=== PATIENT | female | born 1955 | race Caucasian/White ===

== ENCOUNTER 2020-09-20 12:38 | Emergency (ER) | payer OTHER, SELFPAY ==
--- NOTE | ~2020-09-20 | CT_ITS ---
EXAMINATION: CT ABDOMEN AND PELVIS WITH CONTRAST CLINICAL INFORMATION: History of ulcerative colitis post colectomy. Diarrhea and vomiting. Evaluate for bowel obstruction or pouchitis. COMPARISON: None TECHNIQUE: Multidetector volumetric images were obtained from the superior aspect of the liver through the pubic symphysis following administration 85 mL of Omnipaque 350 intravenous contrast. Sagittal and coronal reformatted images were obtained on the technologist's workstation. Oral contrast: Yes This CT examination was performed using dose optimization techniques as appropriate, variously including the following: *Automated exposure control *Adjustment of mA and/or kV according to patient size (this includes techniques or standardized protocols for targeted exams where dose is matched to indication/reason for exam; i.e. extremities or head) *Use of iterative reconstruction technique DLP: 380 mGy-cm FINDINGS: LUNG BASES: The visualized lung bases are unremarkable. LIVER, GALLBLADDER, AND BILIARY TREE: There are multiple low-attenuation liver lesions compatible with cysts. The largest measures 2 cm in the central right lobe the liver near the venous confluence. The gallbladder is unremarkable. There is no biliary duct dilatation. PANCREAS: Unremarkable. SPLEEN: Unremarkable. ADRENAL GLANDS: Unremarkable. KIDNEYS AND URETERS: The kidneys are normal in size, shape, and attenuation. No hydronephrosis, hydroureter, or calculi seen. No perinephric stranding. BLADDER: Unremarkable. GASTROINTESTINAL TRACT: The patient is post total colectomy. There are slightly dilated fluid-filled loops of distal small bowel in the right lower quadrant and pelvis. The pouch is slightly distended and fluid-filled. No wall thickening to suggest pouchitis. No caliber change to suggest mechanical obstruction. There is a small amount of ascites in the pelvis. No abscess or free air is seen. ABDOMINAL WALL: There is a small ventral or supraumbilical and umbilical hernias containing fat. LYMPH NODES: Normal. VASCULAR: Unremarkable. PELVIC VISCERA: The uterus appears to have been removed. No pelvic mass is seen. OSSEOUS STRUCTURES: There is degenerative disc disease at L5-S1. There is a 9 mm anterior subluxation of L5 with respect to S1. CT/CT abdomen pelvis w con IMPRESSION: Postsurgical change following total colectomy. Slightly dilated fluid-filled loops of distal small bowel in the right lower quadrant and pelvis and dilated fluid-filled pouch. No wall thickening to suggest pouchitis. No caliber change to suggest mechanical obstruction. Small amount of fluid in the pelvis. Multiple liver cysts.
[2020-09-20 12:47] VITALS: BP 117/74; PULSE 85; RESP 15; TEMP 36.7; O2SAT 98; BMI 19.8
[2020-09-20] MEDS: ondansetron HCL 4 MG/2 ML VIAL IVPUSH (13:22)
[2020-09-20] MEDS: 0.9 % Sodium Chloride 1,000 ML 999 ML IV ×2 (13:22)
[2020-09-20 13:25] LABS: MANUAL DIFF FLAG NO
[2020-09-20 13:28] LABS: Basophils Percent Auto 0.6 % (0-2); Eosinophils Absolute Auto 0.5 X10*3/uL (0.0-0.4); Eosinophils Percent Auto 7.7 % (0-4); Hematocrit 48.1 % (37-47); Hemoglobin 15.6 g/dl (12.0-16.0); Imm Gran Abs Auto 0.01 X10*3/uL (0.00-0.03); Imm Gran Pct Auto 0.2 % (0.0-0.4); Lymphocytes Absolute Auto 1.3 X10*3/uL (1.2-4.9); Lymphocytes Percent Auto 21.1 % (20-40); Mean Corpuscular HGB Conc 32.4 g/dl (31.0-35.0); Mean Corpuscular Hemoglobin 28.7 pg (27.0-33.0); Mean Corpuscular Volume 88.4 fL (80-98); Mean Platelet Volume 10.3 fL (9.4-12.3); Monocytes Absolute Auto 0.7 X10*3/uL (0.1-1.2); Monocytes Percent Auto 10.8 % (2-11); Neutrophils Absolute Auto 3.7 X10*3/uL (2.0-8.3); Neutrophils Percent Auto 59.6 % (45-73); Platelet Count 332 X10*3/uL (160-400); Red Blood Count 5.44 X10*6/uL (4.20-5.50); Red Cell Distribution Width 13.4 % (11.0-16.0); White Blood Count 6.3 X10*3/uL (4.8-10.8)
[2020-09-20 13:58] LABS: Alanine Aminotransferase 22 U/L (0-31); Albumin Level 4.5 g/dL (3.5-5.0); Alkaline Phosphatase 78 U/L (39-117); Anion Gap 14 (12-20); Aspartate Amino Transferase 22 U/L (5-31); Bilirubin Total 0.6 mg/dL (0.0-1.0); Blood Urea Nitrogen 26 mg/dL (9-16); Calcium 10.4 mg/dL (8.4-10.2); Carbon Dioxide 22 mmol/L (22-29); Chloride 102 mmol/L (96-108); Creatinine Clr Calc Pharmacy 47.9; Estimated Glomerular Filt Rate 55; Glucose Random 124 mg/dL (60-115); Lipase 44 U/L (8-78); Potassium 4.2 mmol/L (3.3-5.1); Sodium 134 mmol/L (135-145); Total Protein 8.1 g/dL (6.5-8.0)
[2020-09-20] MEDS: iohexoL 350 MG/ML 100 ML INFUS..BTL 85 ML IV (14:19)
[2020-09-20 14:53] LABS: Lactic Acid 0.7 mmol/L (0.5-2.0)
[2020-09-20 15:16] VITALS: BP 115/71; PULSE 69
[2020-09-20 15:17] VITALS: BP 119/80; PULSE 80
[2020-09-20 15:19] VITALS: BP 114/81; PULSE 75
[2020-09-20 15:22] VITALS: BP 114/81; PULSE 71; RESP 16; TEMP 36.6; O2SAT 100
--- NOTE | 2020-09-20 15:49 | ED_ITS ---
HPI - General Adult General Chief complaint: Nausea/Vomiting/Diarrhea Stated complaint: VOMITING DIARRHEA Time Seen by Provider: 09/20/20 12:52 Source: patient and family (Patient's daughter ) Mode of arrival: ambulatory Limitations: no limitations History of Present Illness HPI narrative: 64-year-old female who presents the emergency department for evaluation of nausea, vomiting, diarrhea, dizziness and weakness times 2-3 days. The patient has a history of ulcerative colitis and had a cancerous polyp which required colectomy with creation of a J-pouch approximately 1 and half years prior to evaluation. The patient states that she gets episodes of diarrhea and nausea but seldom gets episodes with vomiting. She states that over the past 2- 3 days she has had intermittent nausea. She has vomited anywhere from 1-4 times per day. She states that she has had diarrhea, too numerous episodes to count. She describes diarrhea as a large volume of watery diarrhea with occasional blood in the diarrhea. She states that she has been able to eat small amounts of food but she has been able to drink large amounts of fluid. She denies feeling bloated or distended. She denied abdominal pain. She denied fever, chills, chest pain or shortness of breath. She has not had any recent travel. She has not been treated with antibiotics recently. She states that she gets episodes of diarrhea every 2-3 months which her doctor is attributed to possible proctitis. She was on Remeron to see if this improved the symptoms but this was discontinued in June of 2020. The patient's provider did start her on nortriptyline for 6 weeks to see if this improved her symptoms diarrhea. 1625: The patient C difficile toxin a and B and antigen tests were negative. I did leave a message on the patient's voicemail with this information. Please note the patient does identify yourself on the voicemail. Related Data Allergies Allergy/AdvReac Type Severity Reaction Status Date / Time No Known Allergies Allergy Verified 09/20/20 13:08 Review of Systems Review of Systems: Yes all other systems are reviewed and are negative Neurologic: Reports Abnormal speech present [facility] Past Medical History [facility] Narrative: Past medical history: Ulcerative colitis, colectomy secondary to cancerous polyps 2 years prior, J pouch created 1/2 years prior, cervical cancer, EHSAN/BSO, partial nephrectomy secondary to benign tumor 7 years prior. The patient denies tobacco, alcohol and drug use. Social History Social History Advance Directives: Yes Advance Directives Information Provided: No Advance Directives on File: No Physical Exam Vital Signs: Vital Signs: Last Vital Signs Temp 97.8 F 09/20/20 15:22 Pulse 71 09/20/20 15:22 Resp 16 09/20/20 15:22 BP 114/81 09/20/20 15:22 Pulse Ox 100 09/20/20 15:22 Body Mass Index 19.8 Const: General: healthy appearing and other (Very pleasant and cooperative, does not appear to be in distress) Orientation/consciousness: oriented to person and oriented to place Limitations: no limitations HENMT: Head: Yes normal to inspection, Yes normocephalic and Yes atraumatic Ears: external ears normal General nose exam: Normal external nose present Face and sinus: Yes normal facial exam Mouth: Normal oral and palatal mucosa present Throat: Yes posterior oropharynx normal Eyes: Periorbital: periorbital findings normal Eyelids: Yes eyelids normal Conjunctivae: conjunctivae normal Sclerae: sclerae normal Corneas: corneas normal Pupils: Equal, round and reactive pupils present Direct Ophthalmoscopy: normal light reflex Neck: Neck: Yes full ROM, Yes no lymphadenopathy, Yes no meningeal signs, Yes trachea midline and Yes supple Chest: Chest palpation & inspection: normal inspection of the chest and normal palpation of entire chest wall Resp: Effort & Inspection: normal respiratory effort and able to speak in c omplete sentences Auscultation: clear to auscultation bilaterally Cardio: Rate: regular rate Rhythm: regular rhythm Heart sounds: S1 normal heart sound present, S2 normal heart sound present and no murmurs GI: Inspection: Yes normal to inspection Palpation (GI): Soft to palpation, nontender, no guarding, not rigid and No hepatosplenomegaly present : General: Yes no CVA tenderness Back/Spine/Pelvis: Back: no CVA tenderness Cervical Spine: normal cervical lordosis Thoracic/Lumbar Spine: thoracic and lumbar spine normal to inspection Skin: Lesions: no lesions Rashes: no rashes Wounds: no wounds Neuro: General: oriented to person, oriented to place and no meningeal signs Cranial nerves: Yes Equal, round and reactive pupils present Cognition (Neuro): normal cognition Speech: Abnormal speech present Motor exam (neuro): 5/5 motor strength present throughout Extrem: General: Yes normal to inspection and Yes full ROM Psych: Appearance: well kempt Mental Status: mental status grossly normal Speech and movement: Normal speech and movement present Affect: normal affect Attitude: cooperative Thought process: Normal thought process present Thought content: Normal thought content present Course Course Course Narrative: 64-year-old female with history of ulcerative colitis status post colectomy and creation of J-pouch who presents emergency department for evaluation of nausea, vomiting, diarrhea and weakness times 2-3 days. Patient's physical examination revealed normal vital signs. The patient's abdomen did not appear to be distended and she had no significant abdominal tenderness. The differential includes but not limited to infectious diarrhea (C diff), viral syndrome, bowel obstruction, pouchitis. I did order laboratory evaluation and CT scan of the abdomen pelvis with IV contrast. Patient was ordered to get Zofran 4 mg IV for her nausea and vomiting and normal saline IV x2 L for her dehydration. 15 30: The patient's laboratory evaluation revealed a slight elevation of BUN of 26 otherwise was unremarkable, showed normal LFTs and a non elevated lipase. CT scan of the abdomen and pelvis with IV contrast revealed no bowel obstruction, no wall thickening, the patient does have some slightly dilated loops of small bowel and slightly dilated pouch with fluid in the patch noted with no wall thickening and no inflammatory changes. Given this finding, I suspect that the patient has a viral gastritis verses bacterial diarrheal illness. C diff and stool cultures are pending. The patient did receive 2 L of normal saline IV and she was not orthostatic after this infusion. She is feeling significantly better and was discharged home with verbal and printed instructions. Medical Decision Making Lab Data Result diagrams: 09/20/20 13:14 09/20/20 13:14 Labs: Lab Results 09/20/20 09/20/20 09/20/20 Range/Units 13:14 13:14 14:26 WBC 6.3 (4.8-10.8) X10*3/uL RBC 5.44 (4.20-5.50) X10*6/uL Hgb 15.6 (12.0-16.0) g/dl Hct 48.1 H (37-47) % MCV 88.4 (80-98) fL MCH 28.7 (27.0-33.0) pg MCHC 32.4 (31.0-35.0) g/dl RDW 13.4 (11.0-16.0) % Plt Count 332 (160-400) X10*3/uL MPV 10.3 (9.4-12.3) fL Immature Gran % (Auto) 0.2 (0.0-0.4) % Neut % (Auto) 59.6 (45-73) % Lymph % (Auto) 21.1 (20-40) % [place] % (Auto) 10.8 (2-11) % Eos % (Auto) 7.7 H (0-4) % Baso % (Auto) 0.6 (0-2) % Lymph # (Auto) 1.3 (1.2-4.9) X10*3/uL [place] # (Auto) 0.7 (0.1-1.2) X10*3/uL Eos # (Auto) 0.5 H (0.0-0.4) X10*3/uL Baso # (Auto) 0.0 (0.0-0.2) X10*3/uL Abs Immat Gran (auto) 0.01 (0.00-0.03) X10*3/uL Absolute Neuts (auto) 3.7 (2.0-8.3) X10*3/uL Absolute Nucleated RBC 0.000 (0.0-0.012) X10*3/uL Nucleated RBC % (auto) 0.0 (0.0-0.2) /100WBC Sodium 134 L (135-145) mmol/L Potassium 4.2 (3.3-5.1) mmol/L Chloride 102 (96-108) mmol/L Carbon Dioxide 22 (22-29) mmol/L Anion Gap 14 (12-20) BUN 26 H (9-16) mg/dL Creatinine 1.01 (0.5-1.4) mg/dL Estim Creat Clear Calc 47.9 Estimated GFR 55 Random Glucose 124 H (60-115) mg/dL Lactic Acid 0.7 (0.5-2.0) mmol/L Calcium 10.4 H (8.4-10.2) mg/dL Total Bilirubin 0.6 (0.0-1.0) mg/dL AST 22 (5-31) U/L ALT 22 (0-31) U/L Alkaline Phosphatase 78 (39-117) U/L Total Protein 8.1 H (6.5-8.0) g/dL Albumin 4.5 (3.5-5.0) g/dL Lipase 44 (8-78) U/L C. difficile Toxin A&B (Negative) C. difficile Antigen (Negative) C. difficile Interpret 09/20/20 Range/Units 15:12 WBC (4.8-10.8) X10*3/uL RBC (4.20-5.50) X10*6/uL Hgb (12.0-16.0) g/dl Hct (37-47) % MCV (80-98) fL MCH (27.0-33.0) pg MCHC (31.0-35.0) g/dl RDW (11.0-16.0) % Plt Count (160-400) X10*3/uL MPV (9.4-12.3) fL Immature Gran % (Auto) (0.0-0.4) % Neut % (Auto) (45-73) % Lymph % (Auto) (20-40) % [place] % (Auto) (2-11) % Eos % (Auto) (0-4) % Baso % (Auto) (0-2) % Lymph # (Auto) (1.2-4.9) X10*3/uL [place] # (Auto) (0.1-1.2) X10*3/uL Eos # (Auto) (0.0-0.4) X10*3/uL Baso # (Auto) (0.0-0.2) X10*3/uL Abs Immat Gran (auto) (0.00-0.03) X10*3/uL Absolute Neuts (auto) (2.0-8.3) X10*3/uL Absolute Nucleated RBC (0.0-0.012) X10*3/uL Nucleated RBC % (auto) (0.0-0.2) /100WBC Sodium (135-145) mmol/L Potassium (3.3-5.1) mmol/L Chloride (96-108) mmol/L Carbon Dioxide (22-29) mmol/L Anion Gap (12-20) BUN (9-16) mg/dL Creatinine (0.5-1.4) mg/dL Estim Creat Clear Calc Estimated GFR Random Glucose (60-115) mg/dL Lactic Acid (0.5-2.0) mmol/L Calcium (8.4-10.2) mg/dL Total Bilirubin (0.0-1.0) mg/dL AST (5-31) U/L ALT (0-31) U/L Alkaline Phosphatase (39-117) U/L Total Protein (6.5-8.0) g/dL Albumin (3.5-5.0) g/dL Lipase (8-78) U/L C. difficile Toxin A&B Negative (Negative) C. difficile Antigen Negative (Negative) C. difficile Interpret SEE NOTE Discharge Plan Discharge Clinical Impression: Acute dehydration Diarrhea Qualifiers: Diarrhea type: unspecified type Qualified Code(s): R19.7 - Diarrhea, unspecified Vomiting Qualifiers: Vomiting type: unspecified Vomiting Intractability: non-intractable Nausea presence: with nausea Qualified Code(s): R11.2 - Nausea with vomiting, unspecified Patient Disposition: Home, Self-Care Instructions: Acute Nausea and Vomiting (ED), Acute Diarrhea (ED) Additional Instructions: Your blood work was normal. The CT scan of your abdomen pelvis with IV contrast reveals some slight dilation of loops of small bowel and some fluid the J pouch but no evidence inflammation or wall thickening which is reassuring. The cause of your symptoms is unclear, you may have a viral infection. Your stool was sent for C difficile testing and for a stool culture. The C difficile test should come back today but the stool culture may come back in 2-3 days. Rest Increase your fluid and food intake. Take the Zofran as needed for nausea and vomiting. Take Tylenol (acetaminophen) 500 mg pills, 2 pills every 4 to 6 hours as needed for pain. Follow-up with your doctor in 2 days. Please return to the emergency department if your symptoms get worse or if you develop any symptoms that are concerning to you. Interventions: ED Discharge Assessment Last Done: 09/20/20 15:56 Discharge Date/Time: 09/20/20 15:56
[2020-09-20 16:08] LABS: CDIFF Ag Negative (Negative); CDIFF Internal ctrl Dots and bkg OK (V); CDiff Toxin Negative (Negative)
== END 2020-09-20 15:56 | disposition home or self-care (01) ==
PROVIDERS: Emergency Provider Emergency Medicine Emergency Medical Services
DX: E86.0 Dehydration (principal); R19.7 Diarrhea, unspecified; R11.2 Nausea with vomiting, unspecified
CPT/HCPCS: 36415; 74177; 80053; 83605; 83690; 85025; 87045; 87046; 87324; 87449; 96361; 96374; 99284; J2405; Q9967

== ENCOUNTER 2020-11-03 12:31 | Outpatient (REF) | payer OTHER, SELFPAY ==
[2020-11-03 13:34] LABS: Influenza A PCR NEGATIVE (Negative); Influenza B PCR NEGATIVE (Negative); Resp Syncy Virus RNA Qual PCR NEGATIVE (Negative); SARS COV2 PCR INHOUSE NEGATIVE (Negative)
== END 2020-11-03 12:32 | disposition home or self-care (01) ==
LOC: HO.LAB 12:31
PROVIDERS: PCP Internal Medicine; Visit Provider Nurse Practitioner Family
DX: Z20.822 Contact with and (suspected) exposure to COVID-19 (principal)
CPT/HCPCS: 0241U; 36415

== ENCOUNTER 2020-12-16 12:25 | Outpatient (REF) | payer OTHER, SELFPAY ==
[2020-12-16 13:49] LABS: Influenza A PCR NEGATIVE (Negative); Influenza B PCR NEGATIVE (Negative); Resp Syncy Virus RNA Qual PCR NEGATIVE (Negative); SARS COV2 PCR INHOUSE NEGATIVE (Negative)
== END 2020-12-16 12:26 | disposition home or self-care (01) ==
LOC: HO.LAB 12:25
PROVIDERS: Visit Provider Physician Assistant Medical
DX: Z20.822 Contact with and (suspected) exposure to COVID-19 (principal)
CPT/HCPCS: 0241U; 36415

== ENCOUNTER 2021-02-01 12:11 | Outpatient (REF) | payer OTHER, SELFPAY ==
[2021-02-01 13:22] LABS: Influenza A PCR NEGATIVE (Negative); Influenza B PCR NEGATIVE (Negative); Resp Syncy Virus RNA Qual PCR NEGATIVE (Negative); SARS COV2 PCR INHOUSE NEGATIVE (Negative)
== END 2021-02-01 12:12 | disposition home or self-care (01) ==
LOC: HO.LDS 12:11
PROVIDERS: Visit Provider Physician Assistant Medical
DX: Z01.818 Encounter for other preprocedural examination (principal)
CPT/HCPCS: 0241U; 36415

== ENCOUNTER 2021-08-06 12:50 | Outpatient (REF) | payer OTHER, SELFPAY ==
[2021-08-06 16:38] LABS: COVID-19 Test Negative (Negative)
== END 2021-08-06 12:51 | disposition home or self-care (01) ==
LOC: HO.LAB 12:50
PROVIDERS: Emergency Medicine; Visit Provider Internal Medicine
DX: Z20.822 Contact with and (suspected) exposure to COVID-19 (principal)
CPT/HCPCS: 36415; 87635

== ENCOUNTER 2021-10-14 16:34 | Outpatient (REF) | payer OTHER, SELFPAY ==
[2021-10-14 18:15] LABS: Influenza A PCR NEGATIVE (Negative); Influenza B PCR NEGATIVE (Negative); Resp Syncy Virus RNA Qual PCR NEGATIVE (Negative); SARS COV2 PCR INHOUSE POSITIVE (Negative)
== END 2021-10-14 16:35 | disposition home or self-care (01) ==
LOC: HO.10HDL 16:34
PROVIDERS: Visit Provider Physician Assistant
DX: Z20.822 Contact with and (suspected) exposure to COVID-19 (principal)
CPT/HCPCS: 0241U

== ENCOUNTER 2024-05-21 12:11 | Inpatient (IN) | payer MEDICARE, SELFPAY ==
--- NOTE | ~2024-05-21 | CT_ITS ---
EXAMINATION: CT ABDOMEN AND PELVIS WITH CONTRAST CLINICAL INFORMATION: Small bowel obstruction, continued abdominal pain COMPARISON: May 21, 2024 TECHNIQUE: Multidetector volumetric images were obtained from the superior aspect of the liver through the pubic symphysis following administration 85 mL of Omnipaque 350 intravenous contrast. Sagittal and coronal reformatted images were obtained on the technologist's workstation. Oral contrast: No This CT examination was performed using dose optimization techniques as appropriate, variously including the following: *Automated exposure control *Adjustment of mA and/or kV according to patient size (this includes techniques or standardized protocols for targeted exams where dose is matched to indication/reason for exam; i.e. extremities or head) *Use of iterative reconstruction technique DLP: 301 mGy-cm FINDINGS: LUNG BASES: The visualized lung bases are unremarkable. LIVER, GALLBLADDER, AND BILIARY TREE: There are stable multiple low-attenuation lesions in the liver consistent with multiple hepatic cysts. Patient is status post cholecystectomy PANCREAS: Unremarkable. SPLEEN: Unremarkable. ADRENAL GLANDS: Unremarkable. KIDNEYS AND URETERS: The kidneys are normal in size, shape, and attenuation. No hydronephrosis, hydroureter, or calculi seen. No perinephric stranding. BLADDER: Unremarkable. GASTROINTESTINAL TRACT: Patient is status post total colectomy loops of small bowel are significantly distended due to small bowel obstruction, there is mild abdominal and pelvic ascites. Zone of transition is not clear. Postsurgical changes seen in the lower abdomen. ABDOMINAL WALL: No significant hernia is appreciated. LYMPH NODES: Normal. VASCULAR: Unremarkable. PELVIC VISCERA: Patient is status post hysterectomy OSSEOUS STRUCTURES: There are degenerative changes at L5-S1 with grade [address] defect[address]/CT abdomen pelvis w IV con IMPRESSION: 1. High-grade small bowel obstruction. 2. Mild ascites. 3. Status post cholecystectomy and hysterectomy and colectomy. 4. Multiple hepatic cysts. 5. Degenerative changes at L5-S1. Fleischner guidelines were followed. Electronically signed by: Evaristo Lujan MD 05/25/2024 05:42 PM EDT
--- NOTE | ~2024-05-21 | CT_ITS ---
EXAMINATION: CT ABDOMEN AND PELVIS WITH CONTRAST CLINICAL INFORMATION: Ulcerative colitis, abdominal pain COMPARISON: September 20, 2020 TECHNIQUE: Multidetector volumetric images were obtained from the superior aspect of the liver through the pubic symphysis following administration of 76 mL of Omnipaque 350 intravenous contrast. Sagittal and coronal reformatted images were obtained on the technologist's workstation. Oral contrast: Redicat This CT examination was performed using dose optimization techniques as appropriate, variously including the following: *Automated exposure control *Adjustment of mA and/or kV according to patient size (this includes techniques or standardized protocols for targeted exams where dose is matched to indication/reason for exam; i.e. extremities or head) *Use of iterative reconstruction technique DLP: 364 mGy-cm FINDINGS: LUNG BASES: Bibasilar atelectasis. LIVER, GALLBLADDER, AND BILIARY TREE: There are multiple low-attenuation lesions in the liver unchanged since previous study due to multiple cysts. Blood is surgically absent. CBD is mildly dilated. There is no evidence of choledocholithiasis. PANCREAS: Unremarkable. SPLEEN: Unremarkable. ADRENAL GLANDS: Unremarkable. KIDNEYS AND URETERS: The kidneys are normal in size, shape, and attenuation. No hydronephrosis, hydroureter, or calculi seen. No perinephric stranding. BLADDER: Unremarkable. . There is no free air or ascites. GASTROINTESTINAL TRACT: Loops of small bowel are distended by fluid and revealed no evidence of wall thickening or ulcerations. Patient is status post total colectomy. Rectosigmoid ductal lesion reveals small amount of stool in the surgical lucas present. There is trace of ascites. ABDOMINAL WALL: No significant hernia is appreciated. LYMPH NODES: Normal. VASCULAR: Unremarkable. PELVIC VISCERA: Uterus is surgically absent OSSEOUS STRUCTURES: There are degenerative changes at the level of L5-S1 with grade [address]/CT abdomen pelvis w IV con IMPRESSION: 1. Status post total colectomy with small amount of stool in the rectum. 2. Fluid-filled distended small bowel, correlate clinically. 3. Trace of ascites. 4. Multiple hepatic cysts. 5. Degenerative changes at the level of L5-S1 with grade 1 anterolisthesis. Fleischner guidelines were followed. Electronically signed by: Evaristo Lujan MD 05/21/2024 06:53 PM EDT
--- NOTE | ~2024-05-21 | XR_ITS ---
EXAMINATION: XR CHEST 1 VIEW CLINICAL INFORMATION: check ng tube placement COMPARISON: None TECHNIQUE: Single portable frontal view. Tubes and lines: Gastric tube passing below the diaphragm into the stomach properly positioned. Lungs and pleura: Both lungs are clear. Heart and mediastinum: The mediastinum is within normal limits.. Bones/soft tissue: Skeletal structures included are normal for patient's age. XR/XR chest 1V IMPRESSION: 1. Gastric tube passing below the diaphragm into the stomach properly positioned. 2. No radiographic evidence of acute cardiopulmonary disease. Electronically signed by: Kenny Troy MD 05/22/2024 07:06 AM EDT
--- NOTE | 2024-05-21 12:26 | ED_ITS ---
HPI - Abdominal Pain General Chief Complaint: Abdominal Pain Stated Complaint: Abd pain, vomiting Time Seen by Provider: 05/21/24 13:25 Source: patient and family () Mode of arrival: ambulatory Limitations: no limitations History of Present Illness ED Provider: ELICEO CAMPOS PA-C HPI narrative: 68 year old female with pmhx significant for ulcerative colitis, hx of cancerous polyp s/p colectomy with J-pouch (follows with [facility]) presents to the ED today for evaluation of acute onset abdominal pain and nausea/ vomiting since 0200 this morning. She reports this pain woke her from her sleep. Her pain is localized to her epigastric region. Pain at onset was 7/10, now around 4-5/10 on arrival to ED. Additionally reports nausea and dry heaving with small amounts of biliary emesis. Trialed a dose of zofran [employer] SAWYER in ED without improvement. She states that she has not had a BM since yesterday which is unusual for her as she typical passes multiple BMs throughout the day. Passing gas. She reports history of ?SBO in the past which resolved with bowel rest and is now concerned she may be obstructed again. Denies fever, chills. Related Data Home Medications ?Medication ?Instructions ?Recorded ?Confirmed loperamide 2 mg capsule 2 mg PO QID PRN Loose Stool 05/21/24 05/21/24 Allergies Allergy/AdvReac Type Severity Reaction Status Date / Time No Known Allergies Allergy Verified 05/21/24 12:29 Review of Systems Review of Systems Constitutional: No fever, chills, fatigue, night sweats, weight changes ENT/Mouth: No ear pain, hearing loss, nasal congestion, sinus pain, rhinorrhea, sore throat Eyes: No eye pain, swelling, redness, vision changes, discharge Cardio: No chest pain, palpitations, FERNÁNDEZ, orthopnea, peripheral edema Pulm: No SOB, cough, sputum, wheezing, dyspnea, hemoptysis GI: No hematemesis, diarrhea, constipation, hematochezia, melena, +abd pain, +N/V : No irregular bleeding, dysuria, frequency, urgency, hesitancy, hematuria, flank pain, urinary flow changes, urinary incontinence or retention MSK: No back pain, neck pain, joint pain, myalgias Skin: No lesions, rashes Neuro: No weakness, numbness, paresthesias, LOC, dizziness, headache Psych: No anxiety/panic, depression, SI/HI, AH/VH All other systems reviewed and are negative. [facility]LY [facility], [facility] Past Medical History Attestation statement: The following information was validated with the patient. Source: old records reviewed and nursing notes reviewed Social History Social History Alcohol intake: current Patient Tobacco Use Status: Never used Tobacco Use of substances other than those prescribed or required for medical reasons: No Advance Directives: No Advance Directives Information Provided: No Physical Exam ED Vital Signs: Vital Signs - 24 hr 05/21/24 12:27 05/21/24 16:30 05/21/24 18:00 Temperature 96.8 F 98.2 F 98.8 F Pulse Rate 78 67 71 Respiratory Rate 16 15 13 Blood Pressure 118/77 111/69 125/67 Pulse Oximetry 97 97 98 Oxygen Delivery Method Room Air Room Air Room Air BMI result Body Mass Index 19.8 vital signs stable. afebrile. normotensive. General: Well appearing, in no acute distress. Skin: Warm, dry, intact. No rashes or lesions. Head: Normocephalic, atraumatic. EENT: Hearing is intact b/l. Conjunctiva clear. PERRLA. Moist mucous membranes.? Neck: Supple without LAD Cardiac: Chest wall symmetric. RRR Lungs: Normal respiratory effort without accessory muscle use. CTA bilaterally. Abdomen: soft, mildly distended, ttp of epigastric region without rebound or guarding, active bs x4. no cvat. Back: No midline spinous or paraspinal tenderness. No step off deformity. Ext: Upper and lower extremities atraumatic, without tenderness, deformity, swelling or erythema. Full ROM throughout. Neuro: AOx3. Normal speech. Ambulating with steady gait. Psych: Appropriate mood and affect. Responds appropriately to questions. Course Course Course Narrative: This is an RME performed by Betsy Peter CNP: Additional HPI, ROS, PE not included below will be deferred to primary provider. Patient is a 68-year-old female with past medical history of ulcerative colitis and had a cancerous polyp which required colectomy with creation of a J-pouch, follows with [facility]. She presents today with onset of symptoms at 03:00 today dry heaving with small amounts of biliary emesis, diffuse abdominal pain, has chronic diarrhea. Reports that she took Zofran without much improvement. She is concerned that she may possibly have an obstruction, admits to having history of ? Partial SBO in the past resolved with dietary rest Plan: Serum labs, and defer radiographic imaging choice to primary provider Reevaluation(s) Reevaluation #1: 1542 -- CBC with out leukocytosis. No anemia. H&H stable. Chemistry without acute electrolyte abnormality requiring intervention. No MANDO. Random glucose 118. Lactic WNL at 1.4. Normal liver function. Lipase WNL at 8. Urine without infection or blood. Negative for COVID, flu, RSV > IVF running. Patient medicated with Reglan and Benadryl for nausea, Toradol for headache. > ct abdomen/ pelvis pending 1725 -- on re-evaluation of patient, she reports abdominal pain has improved to 3/10. upon my entrance into room, patient sleeping comfortably on exam bed. I have reviewed CT imaging and note air/fluid levels with distended bowel loops - concern for obstruction. I have not received official CT read. I have reached out to communications equipment supervisor general surgeon Dr. Morin. Waiting to hear back. 1738 -- Spoke to Dr. Morin who agrees CT findings are concerning for obstruction. Patient has not had any episodes of dry heaving or bilious emesis in ED. States she has still not been able to pass a BM. Dr. Morin recommending NG tube for decompression and admission to his service. Dr. Morin to place admission orders. > informed patient that NG tube is necessary. she tells me she had a horrible experience with NG tube placement in the past and endorses anxiety around this. requesting Ativan. she would like to wait until family is at bedside for NG placement. Reevaluation #2: Betsy Peter COLLET MAKER - NGT was inserted at bedside, use of lidocaine viscous, auscultated air over left upper quadrant, aspirated gastric contents, placed on low wall suction. Patient tolerated procedure well. Placement XR obtained appears to be in good placement, below the diaphragm. Awaiting radiologist impression Time: 19:53 Medical Decision Making Medical Decision Making MDM Narrative: 68 year old female with pmhx significant for ulcerative colitis, hx of cancerous polyp s/p colectomy with J-pouch (follows with [facility]) presents to the ED today for evaluation of acute onset abdominal pain and nausea/ vomiting since 0200 this morning. VSS. afebrile. she is nontoxic appearing and in NAD. soft, mildly distended, ttp of epigastric region without rebound or guarding, active bs x4. Differential diagnosis includes biliary colic, renal colic, nephrolithiasis, gastroenteritis, SBO. Abdominal exam without peritoneal signs. Moderate suspicion for acute hepatobiliary disease (including acute cholecystitis). Less likely to represent acute pancreatitis, PUD (including perforation), acute infectious processes (pneumonia, hepatitis, pyelonephritis), atypical appendicitis, vascular catastrophe, or viscus perforation. Plan: labs, UA, pain control, CT scan, serial reassessment Differential Diagnosis Differential Diagnoses: The differential diagnosis associated with the presentation includes as above. Admission/Observation Consideration of admission/observation: Escalation of care including admission/observation considered Patient to be admitted to general surgery for SBO Consult Healthcare Provider Management of the patient was discussed with: Tie Man (Dr. Morin (GI)) Lab Data MDM Lab Attestation statement: I reviewed the patient's lab results. as above 05/21/24 12:41 05/21/24 12:41 Labs: Lab Results 05/21/24 Range/Units 12:41 WBC 10.7 (4.8-10.8) X10*3/uL RBC 4.92 (4.20-5.50) X10*6/uL Hgb 14.9 (12.0-16.0) g/dl Hct 44.1 (37.0-47.0) % MCV 89.6 (80.0-98.0) fL MCH 30.3 (27.0-33.0) pg MCHC 33.8 (31.0-35.0) g/dl RDW 12.5 (11.0-16.0) % Plt Count 337 (160-400) X10*3/uL MPV 9.7 (9.4-12.3) fL Immature Gran % (Auto) 0.2 (0.0-0.4) % Neut % (Auto) 82.8 H (45-73) % Lymph % (Auto) 9.3 L (20-40) % [place] % (Auto) 6.9 (2-11) % Eos % (Auto) 0.1 (0-4) % Baso % (Auto) 0.7 (0-2) % Lymph # (Auto) 1.0 L (1.2-4.9) X10*3/uL [place] # (Auto) 0.7 (0.1-1.2) X10*3/uL Eos # (Auto) 0.0 (0.0-0.4) X10*3/uL Baso # (Auto) 0.1 (0.0-0.2) X10*3/uL Abs Immat Gran (auto) 0.02 (0.00-0.03) X10*3/uL Absolute Neuts (auto) 8.9 H (2.0-8.3) x10*3/uL Absolute Nucleated RBC 0.000 (0.0-0.012) X10*3/uL Nucleated RBC % (auto) 0.0 (0.0-0.2) /100WBC Sodium 139 (135-145) mmol/L Potassium 3.6 (3.3-5.1) mmol/L Chloride 103 (96-108) mmol/L Carbon Dioxide 27 (22-29) mmol/L Anion Gap 13 (12-20) BUN 16 (9-16) mg/dL Creatinine 0.78 (0.5-1.4) mg/dL Estim Creat Clear Calc 55.3 Estimated GFR > 60 Random Glucose 118 H (60-115) mg/dL Lactic Acid 1.4 (0.5-2.0) mmol/L Calcium 9.6 D (8.4-10.2) mg/dL Total Bilirubin 1.1 H (0.0-1.0) mg/dL AST 23 (5-31) U/L ALT 18 (0-31) U/L Alkaline Phosphatase 75 (39-117) U/L Total Protein 7.7 (6.5-8.0) g/dL Albumin 4.3 (3.5-5.0) g/dL Lipase 8 (8-78) U/L Urine Color Yellow Urine Appearance Clear Urine pH 6.0 (5.0-9.0) Ur Specific [place] 1.015 (1.005-1.025) Urine Protein Negative (Neg-Trace) mg/dL Urine Glucose (UA) Negative (Negative) mg/dL Urine Ketones 15 (Negative) mg/dL Urine Blood Negative (Negative) Urine Nitrite Negative (Negative) Ur Leukocyte Esterase Negative (Negative) Influenza Type A (PCR) NEGATIVE (Negative) Influenza Type B (PCR) NEGATIVE (Negative) RSV RNA Qual (PCR) NEGATIVE (Negative) SARS-CoV-2 RNA (RT-PCR) NEGATIVE (Negative) Independent Interpretation I performed an independent interpretation of an: CT Scan Interpretation: CT scan abd/pelvis showing air fluid levels and distended bowel loops. Radiology Impression Discussion of test interpretation with radiology: I have reviewed the radiologist's reading. Radiologist Impression: EXAMINATION: CT ABDOMEN AND PELVIS WITH CONTRAST CLINICAL INFORMATION: Ulcerative colitis, abdominal pain COMPARISON: September 20, 2020 TECHNIQUE: Multidetector volumetric images were obtained from the superior aspect of the liver through the pubic symphysis following administration of 76 mL of Omnipaque 350 intravenous contrast. Sagittal and coronal reformatted images were obtained on the technologist's workstation. Oral contrast: Redicat This CT examination was performed using dose optimization techniques as appropriate, variously including the following: *Automated exposure control *Adjustment of mA and/or kV according to patient size (this includes techniques or standardized protocols for targeted exams where dose is matched to indication/reason for exam; i.e. extremities or head) *Use of iterative reconstruction technique DLP: 364 mGy-cm FINDINGS: LUNG BASES: Bibasilar atelectasis. LIVER, GALLBLADDER, AND BILIARY TREE: There are multiple low-attenuation lesions in the liver unchanged since previous study due to multiple cysts. Blood is surgically absent. CBD is mildly dilated. There is no evidence of choledocholithiasis. PANCREAS: Unremarkable. SPLEEN: Unremarkable. ADRENAL GLANDS: Unremarkable. KIDNEYS AND URETERS: The kidneys are normal in size, shape, and attenuation. No hydronephrosis, hydroureter, or calculi seen. No perinephric stranding. BLADDER: Unremarkable. . There is no free air or ascites. GASTROINTESTINAL TRACT: Loops of small bowel are distended by fluid and revealed no evidence of wall thickening or ulcerations. Patient is status post total colectomy. Rectosigmoid ductal lesion reveals small amount of stool in the surgical lucas present. There is trace of ascites. ABDOMINAL WALL: No significant hernia is appreciated. LYMPH NODES: Normal. VASCULAR: Unremarkable. PELVIC VISCERA: Uterus is surgically absent OSSEOUS STRUCTURES: There are degenerative changes at the level of L5-S1 with grade [address]/CT abdomen pelvis w IV con IMPRESSION: 1. Status post total colectomy with small amount of stool in the rectum. 2. Fluid-filled distended small bowel, correlate clinically. 3. Trace of ascites. 4. Multiple hepatic cysts. 5. Degenerative changes at the level of L5-S1 with grade 1 anterolisthesis. Fleischner guidelines were followed. Electronically signed by: Evaristo Lujan MD 05/21/2024 06:53 PM EDT RP Independent Historian Clinical information obtained from an independent historian. History obtained from or confirmed by: Spouse () External Record Review External record reviewed: Inpatient record Prescription Management I considered prescription management with: Pain Medication Social Determinants Patient?s care significantly limited by Social Determinants of Health including: Other Social Determinant of Health Medications Administered Generic Name Dose Route Start Last Admin Trade Name Freq PRN Reason Stop Dose Admin Enoxaparin Sodium 40 mg 05/21/24 19:00 05/21/24 19:37 Enoxaparin Sodium 40 Mg/0.4 Ml Syringe SUBCUT 40 mg Q24H CLAUDIA Administration Dextrose/Lactated Ringer's 1,000 mls @ 125 mls/hr 05/21/24 18:15 05/21/24 19:34 D5lr IVCONT 125 mls/hr .Q8H CLAUDIA Administration Discontinued Medications Generic Name Dose Route Start Last Admin Trade Name Freq PRN Reason Stop Dose Admin Diphenhydramine HCl 25 mg 05/21/24 13:35 05/21/24 14:13 Diphenhydramine Hcl 50 Mg/Ml Vial IVPUSH 05/21/24 13:36 25 mg ONCE ONE Administration Sodium Chloride 1,000 mls @ 999 mls/hr 05/21/24 13:45 05/21/24 15:14 Ns IV 05/21/24 14:45 Infused .Q1H1M CLAUDIA Infusion Iohexol 100 ml 05/21/24 16:05 05/21/24 16:06 Iohexol 350 Mg/Ml 100 Ml Infus..Btl IV 05/21/24 16:06 85 ml ONCE ONE Administration Ketorolac Tromethamine 15 mg 05/21/24 14:28 05/21/24 14:39 Ketorolac Tromethamine 15 Mg/Ml Vial IVPUSH 05/21/24 14:29 15 mg ONCE ONE Administration Lidocaine HCl 15 ml 05/21/24 18:11 05/21/24 19:31 Lidocaine Hcl Viscous 2 % 15 Ml Solution MUCOUS MEM 05/21/24 18:12 15 ml ONCE ONE Administration Lorazepam 1 mg 05/21/24 17:39 05/21/24 17:50 Lorazepam 2 Mg/Ml Vial IVPUSH 05/21/24 17:40 1 mg ONCE ONE Administration Metoclopramide HCl 10 mg 05/21/24 13:35 05/21/24 14:13 Metoclopramide Hcl 10 Mg/2 Ml Vial IVPUSH 05/21/24 13:36 10 mg ONCE ONE Administration Critical Care Time Critical Care Time Critical Care Time: Yes Total Critical Care Time: 37 Attestation: Critical care time in the amount of 37 minutes has been provided to the patient in terms of direct patient care, frequent reevaluation, consultation with general surgery, review and interpretation of medical data and results, and management of potentially life-threatening conditions. This is all outside of any medical procedures. Discharge Plan Discharge Clinical Impression: Small bowel obstruction Patient Disposition: Admitted As Inpatient Interventions: Admission Worksheet (ED) Last Done: 05/21/24 20:40
[2024-05-21 12:27] VITALS: BP 118/77; PULSE 78; RESP 16; TEMP 36; O2SAT 97; BMI 19.8
[2024-05-21 12:50] LABS: MANUAL DIFF FLAG NO
[2024-05-21 12:52] LABS: Appearance Urine Clear; Basophils Absolute Auto 0.1 X10*3/uL (0.0-0.2); Basophils Percent Auto 0.7 % (0-2); Color Urine Yellow; Eosinophils Percent Auto 0.1 % (0-4); Glucose Urine UA Negative (Negative); Hematocrit 44.1 % (37.0-47.0); Hemoglobin 14.9 g/dl (12.0-16.0); Imm Gran Abs Auto 0.02 X10*3/uL (0.00-0.03); Imm Gran Pct Auto 0.2 % (0.0-0.4); Leukocyte Esterase Urine Negative (Negative); Lymphocytes Percent Auto 9.3 % (20-40); Mean Corpuscular HGB Conc 33.8 g/dl (31.0-35.0); Mean Corpuscular Hemoglobin 30.3 pg (27.0-33.0); Mean Corpuscular Volume 89.6 fL (80.0-98.0); Mean Platelet Volume 9.7 fL (9.4-12.3); Monocytes Absolute Auto 0.7 X10*3/uL (0.1-1.2); Monocytes Percent Auto 6.9 % (2-11); Neutrophils Absolute Auto 8.9 x10*3/uL (2.0-8.3); Neutrophils Percent Auto 82.8 % (45-73); Nitrite Urine Negative (Negative); Platelet Count 337 X10*3/uL (160-400); Red Blood Count 4.92 X10*6/uL (4.20-5.50); Red Cell Distribution Width 12.5 % (11.0-16.0); Specific Gravity - Urine 1.015 (1.005-1.025); Urine Blood Negative (Negative); Urine Ketones 15 mg/dL (Negative); Urine Protein Negative (Neg-Trace); White Blood Count 10.7 X10*3/uL (4.8-10.8)
[2024-05-21 13:02] LABS: Lactic Acid 1.4 mmol/L (0.5-2.0)
[2024-05-21 13:05] LABS: Alanine Aminotransferase 18 U/L (0-31); Albumin Level 4.3 g/dL (3.5-5.0); Alkaline Phosphatase 75 U/L (39-117); Anion Gap 13 (12-20); Aspartate Amino Transferase 23 U/L (5-31); Bilirubin Total 1.1 mg/dL (0.0-1.0); Blood Urea Nitrogen 16 mg/dL (9-16); Calcium 9.6 mg/dL (8.4-10.2); Carbon Dioxide 27 mmol/L (22-29); Chloride 103 mmol/L (96-108); Creatinine Clr Calc Pharmacy 55.3; Estimated Glomerular Filt Rate > 60; Glucose Random 118 mg/dL (60-115); Lipase 8 U/L (8-78); Potassium 3.6 mmol/L (3.3-5.1); Sodium 139 mmol/L (135-145); Total Protein 7.7 g/dL (6.5-8.0)
[2024-05-21 13:32] LABS: Influenza A PCR NEGATIVE (Negative); Influenza B PCR NEGATIVE (Negative); Resp Syncy Virus RNA Qual PCR NEGATIVE (Negative); SARS COV2 PCR INHOUSE NEGATIVE (Negative)
[2024-05-21] MEDS: Metoclopramide HCl 10 MG/2 ML VIAL IVPUSH (14:13)
[2024-05-21] MEDS: 0.9 % Sodium Chloride 1,000 ML 999 ML IV (14:13)
[2024-05-21] MEDS: diphenhydrAMINE HCL 50 MG/ML VIAL 25 MG IVPUSH (14:13)
--- NOTE | 2024-05-21 14:26 | PC.NURSE ---
pt a&ox3,iv inserted, labs previously drawn, pt medicated perorder, pt currently denying abd pain but has 4/10 headache- will notify provider, at bedside, call briseno within reach, will continue to monitor
[2024-05-21] MEDS: Ketorolac Tromethamine 15 MG/ML VIAL IVPUSH (14:39)
--- NOTE | 2024-05-21 14:40 | PC.NURSE ---
pt medicated for 11/18 headache
[2024-05-21] MEDS: iohexoL 350 MG/ML 100 ML INFUS..BTL IV (16:06)
[2024-05-21 16:30] VITALS: BP 111/69; PULSE 67; RESP 15; TEMP 36.8; O2SAT 97
[2024-05-21] MEDS: LORazepam 2 MG/ML VIAL 1 MG IVPUSH (17:50)
--- NOTE | 2024-05-21 17:52 | PC.NURSE ---
pt medicated per order
[2024-05-21 18:00] VITALS: BP 125/67; PULSE 71; RESP 13; TEMP 37.1; O2SAT 98
--- NOTE | 2024-05-21 18:19 | PC.NURSE ---
per request of patient, she wishes to wait to have NG tube placed until her daughter arrives. additionally, a provider is going to place the NG tube as patient states they have had difficulties inserting NG tube in the past. lidocaine has been obtained per request of provider/to be administered by provider.
[2024-05-21] MEDS: Lidocaine HCl Viscous 2 % 15 ML SOLUTION MUCOUS MEM (19:31)
[2024-05-21] MEDS: Dextrose 5 % and Lactated Ring 1,000 ML 125 ML IVCONT (19:34)
--- NOTE | 2024-05-21 19:35 | PHA.MEDREC ---
Addendum entered by Cy Esparza RPh 05/21/24 19:39: MED REC CHECKED BY [facility] Original Note: Pharmacy Consult ? Medication Reconciliation Pharmacy has completed the medication reconciliation.
[2024-05-21] MEDS: Enoxaparin Sodium 40 MG/0.4 ML SYRINGE SUBCUT (19:37)
--- NOTE | 2024-05-21 19:56 | PC.NURSE ---
pts daughter and at bedside, provider inserted NG tube to left nare and provider placed pt on intermittent low wall suction, CXR has been ordered, pt denies need for pain medications at this time, will continue to monitor
[2024-05-21 21:52] VITALS: BP 133/73; PULSE 66; RESP 17; TEMP 36.7; O2SAT 95
[2024-05-21 22:05] VITALS: BMI 19.8
[2024-05-22] MEDS: Dextrose 5 % and Lactated Ring 1,000 ML 125 ML IVCONT ×3 (03:12→19:17)
[2024-05-22 03:37] VITALS: BP 132/76; PULSE 67; RESP 17; TEMP 36.4; O2SAT 96
[2024-05-22] MEDS: ondansetron HCL 4 MG/2 ML VIAL IVPUSH ×2 (04:12→17:46)
[2024-05-22 07:48] LABS: Hematocrit 38.7 % (37.0-47.0); Hemoglobin 12.9 g/dl (12.0-16.0); Mean Corpuscular HGB Conc 33.3 g/dl (31.0-35.0); Mean Platelet Volume 10.5 fL (9.4-12.3); Platelet Count 283 X10*3/uL (160-400); Red Cell Distribution Width 12.8 % (11.0-16.0); White Blood Count 5.8 X10*3/uL (4.8-10.8)
[2024-05-22] MEDS: Acetaminophen 1,000 MG/100 ML PIGGYBACK 400 MG IV (07:51)
[2024-05-22 08:00] VITALS: BP 120/68; PULSE 69; RESP 16; TEMP 37.4; O2SAT 97
[2024-05-22 08:13] LABS: Alanine Aminotransferase 16 U/L (0-31); Albumin Level 3.3 g/dL (3.5-5.0); Alkaline Phosphatase 57 U/L (39-117); Anion Gap 9 (12-20); Aspartate Amino Transferase 19 U/L (5-31); Bilirubin Total 1.1 mg/dL (0.0-1.0); Blood Urea Nitrogen 15 mg/dL (9-16); Calcium 8.8 mg/dL (8.4-10.2); Carbon Dioxide 28 mmol/L (22-29); Chloride 106 mmol/L (96-108); Creatinine Clr Calc Pharmacy 60.8; Estimated Glomerular Filt Rate > 60; Glucose Random 136 mg/dL (60-115); Potassium 3.2 mmol/L (3.3-5.1); Sodium 140 mmol/L (135-145); Total Protein 5.9 g/dL (6.5-8.0)
[2024-05-22 08:17] LABS: Baso%MD 0.5 %; Eos%MD 2.6 %; IG%MD 0.2 %; Lymph%MD 13.3 %; Mono%MD 13.1 %; Neut%MD 70.3 %
--- NOTE | 2024-05-22 08:40 | P.HPGS_ITS ---
History of Present Illness History of Present Illness Date of Service: 05/22/24 Chief complaint: SBO, Adhesions Narrative: Linh Silva is a 68 year old female presenting with complaints of abdominal pain, nausea, vomiting, and obstipation. Her past history is significant for ulcerative colitis which was in remission however she developed a cancerous polyp and subsequently underwent a total colectomy with J-pouch performed at [facility]. She normally has multiple bowel movements on a daily basis usually watery until yesterday when her bowels stopped in the abdominal pain began. She denies having anything unusual to eat other than a hard roll. The pain was initially 7/10 in severity. She presented to the emergency department and underwent a CT abdomen and pelvis. This revealed dilated loops of small bowel down into the pelvis felt to be suggestive of a small-bowel obstruction. She reports previous episodes of small-bowel obstruction which resolved non operatively after bowel rest. This morning she reports feeling improved and has had several liquid bowel movements. She reports her abdominal pain is much improved. She denies any fever or chills. She is scheduled to be evaluated at the [facility] to re-evaluate her J-pouch. Review of Systems Review of Systems: Yes all other systems are reviewed and are negative Constitutional: Constitutional: Denies chills, Denies fever(s), Reports headache(s), Reports poor appetite and Denies weakness ENT: Reports headache(s) Cardiovascular: Cardiovascular: Denies chest pain, Denies irregular heart rhythm, Denies palpitations and Denies dyspnea Respiratory: Respiratory: Denies cough, Denies excessive phlegm production and Denies dyspnea Gastrointestinal: Gastrointestinal: Reports abdominal pain, Reports bloating, Denies change in bowel habits, Denies constipation, Denies heartburn, Reports diarrhea, Reports nausea and Reports vomiting Genitourinary: Genitourinary: Denies urinary frequency Musculoskeletal: Musculoskeletal: Denies back pain, Denies muscle weakness and Denies numbness Integumentary/Breasts: Skin/Breast: Denies changing lesions and Denies unusual bruising Neurologic: Reports headache(s), Denies numbness, Denies paresthesias and Denies weakness Psychiatric: Psychiatric: Denies anxiety and Denies depression Endocrine: Endocrine: Denies palpitations Hematologic/Lymphatic: Hematologic/Lymphatic: Denies lymphadenopathy [facility] Past Medical History Medical History (Updated 05/22/24 @ 08:53 by Vitaly Morin MD) Colon polyp Ulcerative colitis Surgical History Surgical History (Updated 05/22/24 @ 08:53 by Vitaly Morin MD) S/P total abdominal hysterectomy and bilateral salpingo-oophorectomy H/O left nephrectomy S/P closure of ileostomy H/O ileostomy H/O total colectomy Social History Social History Household Members: Spouse Housing: House Do you presently have visiting nurse or other home services: No Alcohol intake: current Patient Tobacco Use Status: Never used Tobacco Use of substances other than those prescribed or required for medical reasons: No Currently Displaying Signs/Symptoms of Drug Intoxication Withdrawal: No Have you been hit, kicked, punched, or otherwise hurt by someone within the past year? If so, by whom?: No Do you feel safe in your current relationship?: Yes Is there a partner from a previous relationship who is making you feel unsafe now?: No Are you made to feel afraid or neglected: No Advance Directives: No Advance Directives Information Provided: No Do you have a plan to hurt others: No Plan Recently lost weight without trying: No Nutrition Risks: No Nutritional Risk Patient : No : No Poor oral hygiene: No Meds Allergies Allergy/AdvReac Type Severity Reaction Status Date / Time No Known Allergies Allergy Verified 05/21/24 12:29 Active Medications: Current Medications Calcium Carbonate (Calcium Carbonate 750 Mg Tab.Chew) 750 mg PO Q4H PRN PRN Reason: Heartburn Enoxaparin Sodium (Enoxaparin Sodium 40 Mg/0.4 Ml Syringe) 40 mg SUBCUT Q24H [facility] Last Admin: 05/21/24 19:37 Dose: 40 mg Hydromorphone HCl (Hydromorphone Hcl 0.5 Mg/0.5 Ml Syringe) 0.5 mg IVPUSH Q3H PRN; Protocol PRN Reason: Pain, Severe (Pain Scale 7-10) Dextrose/Lactated Ringer's (D5lr) 1,000 mls @ 125 mls/hr IVCONT .Q8H [facility] Last Admin: 05/22/24 03:12 Dose: 125 mls/hr Acetaminophen (Ofirmev) 1,000 mg in 100 mls @ 400 mls/hr IV Q6H PRN PRN Reason: headache, pain level 1-4 Last Infusion: 05/22/24 08:27 Dose: Infused Magnesium Hydroxide (Milk Of Magnesia 30 Ml Oral.Susp) 30 ml PO DAILY PRN PRN Reason: Constipation Melatonin (Melatonin 3 Mg Tablet) 6 mg PO BEDTIME PRN PRN Reason: Insomnia Ondansetron HCl (Ondansetron Hcl 4 Mg/2 Ml Vial) 4 mg IVPUSH QID PRN PRN Reason: Nausea Last Admin: 05/22/24 04:12 Dose: 4 mg Sodium Chloride (0.9 % Sodium Chloride Flush 3 Ml Syringe) 3 ml IVFLUSH QSHIFT [facility] Last Admin: 05/22/24 07:55 Dose: Not Given Home Medications ?Medication ?Instructions ?Recorded ?Confirmed ?Last Taken ?Type loperamide 2 mg capsule 2 mg PO QID PRN Loose Stool 05/21/24 05/21/24 Unknown History Physical Exam Vital Signs: Vital Signs: Last Vital Signs Temp 97.5 F 05/22/24 03:37 Pulse 67 05/22/24 03:37 Resp 17 05/22/24 03:37 BP 132/76 05/22/24 03:37 Pulse Ox 96 05/22/24 03:37 O2 Del Method Room Air 05/22/24 03:37 BMI result Body Mass Index 19.8 Const: General: cooperative and no acute distress Nutritional Appearance: well nourished Orientation/consciousness: patient oriented x3 Limitations: no limitations HEENT: Head: Yes normocephalic and Yes atraumatic Ears: hearing grossly normal bilaterally Resp: Effort & Inspection: normal respiratory effort, no audible wheezes, no cough and no respiratory distress Cardio: Jugular venous distension: no JVD GI: Inspection: Yes normal to inspection Palpation (GI): Soft to palpation, nontender, no guarding, not rigid, No hepatosplenomegaly present, no hernias and no masses Skin: Other: Warm, dry, no rash Neuro: General: patient oriented x3 Extrem: General: Yes no clubbing, cyanosis or edema Results Results Labs: Short CBC 05/21/24 05/22/24 Range/Units 12:41 06:12 WBC 10.7 5.8 (4.8-10.8) X10*3/uL Hgb 14.9 12.9 (12.0-16.0) g/dl Hct 44.1 38.7 (37.0-47.0) % Plt Count 337 283 (160-400) X10*3/uL BMP 05/21/24 05/22/24 12:41 06:12 Sodium 139 140 Potassium 3.6 3.2 L Chloride 103 106 Carbon Dioxide 27 28 BUN 16 15 Creatinine 0.78 0.71 Calcium 9.6 D 8.8 D Liver Function 05/21/24 05/22/24 Range/Units 12:41 06:12 Total Bilirubin 1.1 H 1.1 H (0.0-1.0) mg/dL AST 23 19 (5-31) U/L ALT 18 16 (0-31) U/L Alkaline Phosphatase 75 57 (39-117) U/L Albumin 4.3 3.3 L (3.5-5.0) g/dL Urine 05/21/24 Range/Units 12:41 Urine Color Yellow Urine Appearance Clear Urine pH 6.0 (5.0-9.0) Ur Specific [place] 1.015 (1.005-1.025) Urine Protein Negative (Neg-Trace) mg/dL Urine Glucose (UA) Negative (Negative) mg/dL Assessment and Plan (1) H/O total colectomy: Status: Acute (2) Ulcerative colitis: Qualifiers: Ulcerative colitis location: unspecified ulcerative colitis location Digestive disease complication type: unspecified complication Qualified Code(s): K51.919 - Ulcerative colitis, unspecified with unspecified co mplications Status: Acute (3) Small bowel obstruction: Status: Acute Plan 68-year-old female patient presenting with sudden onset of abdominal pain, nausea, vomiting, and obstipation, found to have evidence of a small-bowel obstruction by CT abdomen and pelvis. Patient has had multiple abdominal surgeries including total colectomy, hysterectomy, left partial nephrectomy, ileostomy, and ileorectal J-pouch. This morning the patient is passing liquid bowel movements and reports improvement in her abdominal symptoms. She denies any nausea or vomiting. We will clamp nasogastric tube for 4 hours and check residuals. If the left distended 100 mL, plan is to remove the nasogastric tube and start clear liquids. Patient understands and agrees with the plan. Quality Stroke Does the patient have a stroke diagnosis?: No VTE Prior VTE?: No VTE Risk Level:: Surgical - moderate VTE Device Contraindication: N/A - Device Ordered VTE Drug Contraindication: N/A - Med Ordered Procedures Date of Service Date of Service: 05/22/24
[2024-05-22 09:09] LABS: Band Neutrophils Percent 16 % (3-5); Eosinophils Absolute Manual 0.2 X10*3/uL (0.0-0.4); Eosinophils Percent Manual 3 % (0-4); Lymphocytes Absolute Manual 0.8 X10*3/uL (1.2-4.9); Lymphocytes Percent Manual 14 % (20-40); Monocytes Absolute Manual 0.3 X10*3/uL (0.1-1.2); Monocytes Percent Manual 6 % (2-11); Neutrophils Absolute Manual 4.5 X10*3/uL (2.0-8.3); Neutrophils Percent Manual 61 % (45-73)
[2024-05-22 09:12] LABS: Platelet Estimate NORMAL (NORMAL); Platelet Morphology Comment NORMAL; RBC Morphology NORMAL
[2024-05-22] MEDS: Ketorolac Tromethamine 15 MG/ML VIAL IVPUSH ×2 (14:03→21:48)
[2024-05-22 15:22] VITALS: BP 119/72; PULSE 63; RESP 16; TEMP 37.9; O2SAT 96
[2024-05-22 19:41] VITALS: BP 132/68; PULSE 66; RESP 18; TEMP 36.6; O2SAT 97
[2024-05-22] MEDS: LORazepam 0.5 MG TABLET PO (22:08)
[2024-05-23] MEDS: Dextrose 5 % and Lactated Ring 1,000 ML 125 ML IVCONT (03:01)
[2024-05-23 03:35] VITALS: BP 124/58; PULSE 66; RESP 18; TEMP 36.4; O2SAT 94
[2024-05-23 07:46] VITALS: BP 119/63; PULSE 60; RESP 14; TEMP 36.9; O2SAT 94
[2024-05-23] MEDS: Ketorolac Tromethamine 15 MG/ML VIAL IVPUSH ×2 (08:28→20:32)
--- NOTE | 2024-05-23 09:00 | P.PNGS_ITS ---
Subjective Subjective Date of Service: 05/23/24 Interval history: Reports increased abdominal pain this morning compared to yesterday. Still having multiple loose bowel movements with without control. This is making ambulation difficult due to the leakage. Did not eat very much yesterday. Physical Exam 2 Vital Signs: Vital Signs: Last Vital Signs Temp 98.5 F 05/23/24 07:46 Pulse 60 05/23/24 07:46 Resp 14 05/23/24 07:46 BP 119/63 05/23/24 07:46 Pulse Ox 94 05/23/24 07:46 O2 Del Method Room Air 05/23/24 07:46 BMI result Body Mass Index 19.8 Const: General: tired appearing Nutritional Appearance: average body habitus Orientation/consciousness: patient oriented x3 Resp: Effort & Inspection: normal respiratory effort GI: Other: Soft with mild tympany to percussion, tender in the lower abdomen left greater than right. Neuro: General: patient oriented x3 Extrem: General: No edema Objective Data Active Medications Calcium Carbonate (Calcium Carbonate 750 Mg Tab.Chew) 750 mg PO Q4H PRN PRN Reason: Heartburn Hydromorphone HCl (Hydromorphone Hcl 0.5 Mg/0.5 Ml Syringe) 0.5 mg IVPUSH Q3H PRN; Protocol PRN Reason: Pain, Severe (Pain Scale 7-10) Dextrose/Lactated Ringer's (D5lr) 1,000 mls @ 125 mls/hr IVCONT .Q8H [facility] Last Admin: 05/23/24 03:01 Dose: 125 mls/hr Documented By: PREM Acetaminophen (Ofirmev) 1,000 mg in 100 mls @ 400 mls/hr IV Q6H PRN PRN Reason: headache, pain level 1-4 Last Infusion: 05/22/24 08:27 Dose: Infused Documented By: GIO Ketorolac Tromethamine (Ketorolac Tromethamine 15 Mg/Ml Vial) 15 mg IVPUSH Q6H PRN PRN Reason: Pain, Mild (Pain Scale 1-3) Last Admin: 05/23/24 08:28 Dose: 15 mg Documented By: GIO Lorazepam (Lorazepam 0.5 Mg Tablet) 0.5 mg PO Q8H PRN PRN Reason: Anxiety Last Admin: 05/22/24 22:08 Dose: 0.5 mg Documented By: PREM Magnesium Hydroxide (Milk Of Magnesia 30 Ml Oral.Susp) 30 ml PO DAILY PRN PRN Reason: Constipation Melatonin (Melatonin 3 Mg Tablet) 6 mg PO BEDTIME PRN PRN Reason: Insomnia Ondansetron HCl (Ondansetron Hcl 4 Mg/2 Ml Vial) 4 mg IVPUSH QID PRN PRN Reason: Nausea Last Admin: 05/22/24 17:46 Dose: 4 mg Documented By: GIO Sodium Chloride (0.9 % Sodium Chloride Flush 3 Ml Syringe) 3 ml IVFLUSH QSHIFT [facility] Last Admin: 05/23/24 07:16 Dose: Not Given Documented By: LUZ Non-Admin Reason: IV Running Labs 05/22/24 06:12 05/22/24 06:12 Labs: Laboratory Results - last 24 hr 05/22/24 06:12 Neutrophils % (Manual) 61 Band Neutrophils % 16 H Lymphocytes % (Manual) 14 L Monocytes % (Manual) 6 Eosinophils % (Manual) 3 Abs Neuts (Manual) 4.5 Lymphocytes # (Manual) 0.8 L Monocytes # (Manual) 0.3 Eosinophils # (Manual) 0.2 Platelet Estimate NORMAL Plt Morphology Comment NORMAL RBC Morphology NORMAL Procedures Date of Service Date of Service: 05/23/24 Progress Note: A&P Assessment and plan (1) H/O total colectomy: Status: Acute (2) Ulcerative colitis: Status: Acute (3) Small bowel obstruction: Status: Acute Plan Overall patient is improving with continued loose stool however she had increased abdominal pain overnight after eating. Her abdomen is mildly distended soft with some tympany to percussion. I reconnected nasogastric tube to suction with production of a proximally 50 mL of bilious fluid. Will return to NPO status and continue IV fluids. Encouraged patient to get out of bed and ambulate. Time Spent With Patient Time: Total time managing care of this patient today ____ minutes. Quality Stroke Does the patient have a stroke diagnosis?: No VTE Prior VTE?: No VTE Risk Level:: Surgical - moderate VTE Device Contraindication: N/A - Device Ordered VTE Drug Contraindication: N/A - Med Ordered
[2024-05-23] MEDS: Dextrose 5 % and Lactated Ring 1,000 ML 80 ML IVCONT ×2 (10:25→21:34)
[2024-05-23] MEDS: ondansetron HCL 4 MG/2 ML VIAL IVPUSH (11:42)
[2024-05-23] MEDS: Acetaminophen 1,000 MG/100 ML PIGGYBACK 400 MG IV (12:41)
[2024-05-23] MEDS: HYDROmorphone HCl 0.5 MG/0.5 ML SYRINGE IVPUSH (13:20)
[2024-05-23] MEDS: Promethazine HCL 25 MG/ML VIAL 12.5 MG IM (14:51)
[2024-05-23 14:54] VITALS: BP 136/66; PULSE 58; RESP 18; TEMP 36.4; O2SAT 97
--- NOTE | 2024-05-23 15:13 | MHC.CM.PN ---
PT REPORTS SHE LIVES WITH HER AND DAUGHTER AND IS INDEPENDENT WITH CARE SHE HAS NO DME AND NO SERVICES SHE DECLINES TO COMPLETE A HCP AT THIS TIME HOWEVER UNDERSTANDS CM CAN ASSIST IF SHE WISHES TO PROCEED WITH ONE ONCE FEELING BETTER PCP: DANILO COOLEY IMM DELIVERED DCP: HOME NO SERVICES VIA FAMILY TRANSPORT
[2024-05-23 19:01] VITALS: BP 124/68; PULSE 65; RESP 18; TEMP 36.7; O2SAT 96
[2024-05-23] MEDS: LORazepam 2 MG/ML VIAL 0.5 MG IVPUSH (20:31)
[2024-05-24 03:48] VITALS: BP 133/73; PULSE 64; RESP 18; TEMP 36.8; O2SAT 94
[2024-05-24] MEDS: Ketorolac Tromethamine 15 MG/ML VIAL IVPUSH ×3 (05:06→20:56)
[2024-05-24] MEDS: LORazepam 2 MG/ML VIAL 0.5 MG IVPUSH ×2 (05:07→21:07)
[2024-05-24 07:22] VITALS: BP 131/75; PULSE 60; RESP 16; TEMP 38; O2SAT 94
[2024-05-24] MEDS: Acetaminophen 1,000 MG/100 ML PIGGYBACK 400 MG IV (08:01)
[2024-05-24] MEDS: Dextrose 5 % and Lactated Ring 1,000 ML 80 ML IVCONT ×2 (09:36→18:18)
[2024-05-24 10:51] VITALS: TEMP 37.2
--- NOTE | 2024-05-24 14:27 | P.PNGS_ITS ---
Subjective Subjective Date of Service: 05/24/24 Interval history: At present, patient has no abdominal symptoms. She has had several bouts of loose stool. She has had her NG tube clamped for 2 days now. She has no nausea or vomiting. Physical Exam 2 Vital Signs: Vital Signs: Last Vital Signs Temp 99.0 F 05/24/24 10:51 Pulse 60 05/24/24 07:22 Resp 16 05/24/24 07:22 BP 131/75 05/24/24 07:22 Pulse Ox 94 05/24/24 07:22 O2 Del Method Room Air 05/24/24 07:22 BMI result Body Mass Index 19.8 GI: Other: Abdomen is soft, benign, nontender Objective Data Active Medications Calcium Carbonate (Calcium Carbonate 750 Mg Tab.Chew) 750 mg PO Q4H PRN PRN Reason: Heartburn Hydromorphone HCl (Hydromorphone Hcl 0.5 Mg/0.5 Ml Syringe) 0.5 mg IVPUSH Q3H PRN; Protocol PRN Reason: Pain, Severe (Pain Scale 7-10) Last Admin: 05/23/24 13:20 Dose: 0.5 mg Documented By: GIO Acetaminophen (Ofirmev) 1,000 mg in 100 mls @ 400 mls/hr IV Q6H PRN PRN Reason: headache, pain level 1-4 Last Infusion: 05/24/24 08:35 Dose: Infused Documented By: LUZ Dextrose/Lactated Ringer's (D5lr) 1,000 mls @ 80 mls/hr IVCONT .[id number] [facility] Last Admin: 05/24/24 09:36 Dose: 80 mls/hr Documented By: LUZ Ketorolac Tromethamine (Ketorolac Tromethamine 15 Mg/Ml Vial) 15 mg IVPUSH Q6H PRN PRN Reason: Pain, Mild (Pain Scale 1-3) Last Admin: 05/24/24 05:06 Dose: 15 mg Documented By: PREM Lorazepam (Lorazepam 2 Mg/Ml Vial) 0.5 mg IVPUSH Q6H PRN PRN Reason: Anxiety Last Admin: 05/24/24 05:07 Dose: 0.5 mg Documented By: PREM Magnesium Hydroxide (Milk Of Magnesia 30 Ml Oral.Susp) 30 ml PO DAILY PRN PRN Reason: Constipation Melatonin (Melatonin 3 Mg Tablet) 6 mg PO BEDTIME PRN PRN Reason: Insomnia Ondansetron HCl (Ondansetron Hcl 4 Mg/2 Ml Vial) 4 mg IVPUSH QID PRN PRN Reason: Nausea Last Admin: 05/23/24 11:42 Dose: 4 mg Documented By: GIO Promethazine HCl (Promethazine Hcl 25 Mg/Ml Vial) 12.5 mg IM Q6H PRN PRN Reason: Nausea Last Admin: 05/23/24 14:51 Dose: 12.5 mg Documented By: GIO Sodium Chloride (0.9 % Sodium Chloride Flush 3 Ml Syringe) 3 ml IVFLUSH QSHIFT [facility] Last Admin: 05/24/24 08:04 Dose: Not Given Documented By: LUZ Non-Admin Reason: IV Running Labs 05/22/24 06:12 05/22/24 06:12 Procedures Date of Service Date of Service: 05/24/24 Progress Note: A&P Assessment and plan (1) Small bowel obstruction: Status: Acute (2) Ulcerative colitis: Status: Acute (3) H/O total colectomy: Status: Acute Plan Resolving SBO. Current plan is to remove NG tube, advanced to clear liquid diets, encourage incentive spirometry and out of bed/ambulate. I spoke by phone with patient's daughter Dary and communicated the above to her. Time Spent With Patient Time: Total time managing care of this patient today ____ minutes. Quality Stroke Does the patient have a stroke diagnosis?: No VTE Prior VTE?: No VTE Risk Level:: Surgical - moderate VTE Device Contraindication: N/A - Device Ordered VTE Drug Contraindication: N/A - Med Ordered
[2024-05-24 15:05] VITALS: BP 122/68; PULSE 71; RESP 16; TEMP 36.7; O2SAT 94
[2024-05-24 19:11] VITALS: BP 136/64; PULSE 69; RESP 16; TEMP 37.4; O2SAT 94
[2024-05-24] MEDS: ondansetron HCL 4 MG/2 ML VIAL IVPUSH (19:13)
[2024-05-24] MEDS: 0.9 % Sodium Chloride Flush 3 ML SYRINGE IVFLUSH (19:16)
--- NOTE | 2024-05-24 21:08 | MHC.PIE ---
p; pt c/o pain 02/17. per orders, prn dilaudid offered and pt refused, pt reports iv dilaudid caused increased nausea. pt requesting toradol - note; prn toradol q6 given last at 1615 i; dr layton notified. telephone order toradol now e; will cont to monitor
[2024-05-25] MEDS: Ketorolac Tromethamine 15 MG/ML VIAL IVPUSH ×4 (00:31→20:22)
[2024-05-25] MEDS: LORazepam 2 MG/ML VIAL 0.5 MG IVPUSH ×2 (02:39→20:24)
[2024-05-25] MEDS: Dextrose 5 % and Lactated Ring 1,000 ML 80 ML IVCONT ×2 (02:41→13:30)
[2024-05-25 03:19] VITALS: BP 129/63; PULSE 73; RESP 16; TEMP 37.3; O2SAT 93
[2024-05-25 07:07] VITALS: BP 125/75; PULSE 80; RESP 16; TEMP 37.4; O2SAT 92
--- NOTE | 2024-05-25 08:03 | P.PNGS_ITS ---
Subjective Subjective Date of Service: 05/25/24 Interval history: Patient still not feeling well, incontinent of watery stool but still feeling bloated/distended. She reports only having a small amount of broth po. Physical Exam 2 Vital Signs: Vital Signs: Last Vital Signs Temp 99.4 F 05/25/24 07:07 Pulse 80 05/25/24 07:07 Resp 16 05/25/24 07:07 BP 125/75 05/25/24 07:07 Pulse Ox 92 05/25/24 07:07 O2 Del Method Room Air 05/25/24 07:07 BMI result Body Mass Index 19.8 Const: General: ill appearing Nutritional Appearance: thin O rientation/consciousness: patient oriented x3 Resp: Effort & Inspection: normal respiratory effort, no audible wheezes, no cough and no respiratory distress GI: Other: distended, soft, non-tender Skin: Other: warm and dry Neuro: General: patient oriented x3 Objective Data Active Medications Calcium Carbonate (Calcium Carbonate 750 Mg Tab.Chew) 750 mg PO Q4H PRN PRN Reason: Heartburn Hydromorphone HCl (Hydromorphone Hcl 0.5 Mg/0.5 Ml Syringe) 0.5 mg IVPUSH Q3H PRN; Protocol PRN Reason: Pain, Severe (Pain Scale 7-10) Last Admin: 05/23/24 13:20 Dose: 0.5 mg Dextrose/Lactated Ringer's (D5lr) 1,000 mls @ 80 mls/hr IVCONT .[id number] [facility] Last Admin: 05/25/24 02:41 Dose: 80 mls/hr Documented By: PAL Ketorolac Tromethamine (Ketorolac Tromethamine 15 Mg/Ml Vial) 15 mg IVPUSH Q6H PRN PRN Reason: Pain, Mild (Pain Scale 1-3) Last Admin: 05/25/24 06:23 Dose: 15 mg Documented By: PAL Comments: given per pt request Lorazepam (Lorazepam 2 Mg/Ml Vial) 0.5 mg IVPUSH Q6H PRN PRN Reason: Anxiety Last Admin: 05/25/24 02:39 Dose: 0.5 mg Documented By: PAL Magnesium Hydroxide (Milk Of Magnesia 30 Ml Oral.Susp) 30 ml PO DAILY PRN PRN Reason: Constipation Melatonin (Melatonin 3 Mg Tablet) 6 mg PO BEDTIME PRN PRN Reason: Insomnia Ondansetron HCl (Ondansetron Hcl 4 Mg/2 Ml Vial) 4 mg IVPUSH QID PRN PRN Reason: Nausea Last Admin: 05/24/24 19:13 Dose: 4 mg Documented By: PAL Promethazine HCl (Promethazine Hcl 25 Mg/Ml Vial) 12.5 mg IM Q6H PRN PRN Reason: Nausea Last Admin: 05/23/24 14:51 Dose: 12.5 mg Documented By: GIO Sodium Chloride (0.9 % Sodium Chloride Flush 3 Ml Syringe) 3 ml IVFLUSH QSHIFT [facility] Last Admin: 05/24/24 19:16 Dose: 3 ml Documented By: PAL Labs 05/22/24 06:12 05/22/24 06:12 Procedures Date of Service Date of Service: 05/25/24 Progress Note: A&P Assessment and plan (1) H/O total colectomy: Status: Acute (2) Ulcerative colitis: Status: Acute (3) Small bowel obstruction: Status: Acute Plan 68 year old female patient with history of total colectomy, j-pouch, now with obstructive symptoms but loose, incontinent stools, and continued abdominal pain and bloating. Will repeat CT AP with oral contrast today. GI consultation. Time Spent With Patient Time: Total time managing care of this patient today ____ minutes. Quality Stroke Does the patient have a stroke diagnosis?: No VTE Prior VTE?: No VTE Risk Level:: Surgical - moderate VTE Device Contraindication: N/A - Device Ordered VTE Drug Contraindication: N/A - Med Ordered
--- NOTE | 2024-05-25 08:41 | P.CNGI_ITS ---
History of Present Illness Data of Consult Service Date: 05/25/24 Requesting physician: Vitaly Morin Primary Care Provider: Tran Barrett MD HPI Reason for consult: small bowel obstruction 68 year old female w/ h/o UC since the age of 30, s/p total colectomy and J pouch about 6 yrs ago, cervical ca s/p hysterectomy, XRT who I am seeing for assessment for abdominal pain and GI symptoms Patient had 1-2 d of gradual worsening stabbing diffuse abdominal pain 10/10 without radiation and with nausea and bilious emesis with constipation. The pain was worse with movement, no relieving factors. She had low grade fever. Imaging revealed SBO with dilated small loops of bowel. She had NGT placed and given fluids and analgesia and this was removed after few days. Now having loose stools, partially improved with less pain and distention. No blood or mucous, pus noted. She has these attacks maybe twice a year. In between these attacks she complains of poor quality of life and has seen many surgeons and GI specialists, and tried imodium, cholestyramine, mesalmine, entyvio, VSL #3 but still has up to 15 episodes of loose stools daily with some cramps. She is due another pouchoscopy later this year and is planning to get another opinion at [facility]. She has been told that her pouch looks good, and there is nothing that can be done although at some point a reversal with ileostomy was discussed but never done Review of Systems 2 Review of Systems: Constitutional : No Weight loss, No Fever, No Chills ENT/Mouth : No sore throat, No Rhinorrhea Eyes: No Swelling, No Redness Cardiovascular : No Chest Pain, No SOB, No Edema Respiratory : No Cough, No Sputum, No Wheezing Gastrointestinal : see HPI Genitourinary : NO Dysuria, No Urinary Frequency, No Hematuria, No Urgency Musculoskeletal : + joint pain--with stiffness nathaly in the mornings, No Myalgias, No Joint Swelling Skin : No Skin Lesions, No rash Neuro : No Weakness, No Numbness, No Dizziness, No Headache Psych : No Anxiety/Panic, No Depression Heme/Lymph: No Bruising, No Lymphadenopathy Endocrine : No Polyuria, No Polydipsia All other systems reviewed and are negative. [facility] Past Medical History Medical History (Updated 05/22/24 @ 08:53 by Vitaly Morin MD) Colon polyp Ulcerative colitis Family History Pertinent family history: n FH of CRC Surgical History Surgical History (Updated 05/22/24 @ 08:53 by Vitaly Morin MD) S/P total abdominal hysterectomy and bilateral salpingo-oophorectomy H/O left nephrectomy S/P closure of ileostomy H/O ileostomy H/O total colectomy Social History Social History Household Members: Spouse Housing: House Do you presently have visiting nurse or other home services: No Alcohol intake: current Patient Tobacco Use Status: Never used Tobacco Use of substances other than those prescribed or required for medical reasons: No Currently Displaying Signs/Symptoms of Drug Intoxication Withdrawal: No Have you been hit, kicked, punched, or otherwise hurt by someone within the past year? If so, by whom?: No Do you feel safe in your current relationship?: Yes Is there a partner from a previous relationship who is making you feel unsafe now?: No Are you made to feel afraid or neglected: No Advance Directives: No Advance Directives Information Provided: No Do you have a plan to hurt others: No Plan Recently lost weight without trying: No Nutrition Risks: No Nutritional Risk Patient : No : No Poor oral hygiene: No service: No Meds Allergies Allergy/AdvReac Type Severity Reaction Status Date / Time No Known Allergies Allergy Verified 05/21/24 12:29 Active Medications: Current Medications Calcium Carbonate (Calcium Carbonate 750 Mg Tab.Chew) 750 mg PO Q4H PRN PRN Reason: Heartburn Hydromorphone HCl (Hydromorphone Hcl 0.5 Mg/0.5 Ml Syringe) 0.5 mg IVPUSH Q3H PRN; Protocol PRN Reason: Pain, Severe (Pain Scale 7-10) Last Admin: 05/23/24 13:20 Dose: 0.5 mg Dextrose/Lactated Ringer's (D5lr) 1,000 mls @ 80 mls/hr IVCONT .[id number] CLAUDIA Last Admin: 05/25/24 02:41 Dose: 80 mls/hr Ketorolac Tromethamine (Ketorolac Tromethamine 15 Mg/Ml Vial) 15 mg IVPUSH Q6H PRN PRN Reason: Pain, Mild (Pain Scale 1-3) Last Admin: 05/25/24 06:23 Dose: 15 mg Lorazepam (Lorazepam 2 Mg/Ml Vial) 0.5 mg IVPUSH Q6H PRN PRN Reason: Anxiety Last Admin: 05/25/24 02:39 Dose: 0.5 mg Magnesium Hydroxide (Milk Of Magnesia 30 Ml Oral.Susp) 30 ml PO DAILY PRN PRN Reason: Constipation Melatonin (Melatonin 3 Mg Tablet) 6 mg PO BEDTIME PRN PRN Reason: Insomnia Ondansetron HCl (Ondansetron Hcl 4 Mg/2 Ml Vial) 4 mg IVPUSH QID PRN PRN Reason: Nausea Last Admin: 05/24/24 19:13 Dose: 4 mg Promethazine HCl (Promethazine Hcl 25 Mg/Ml Vial) 12.5 mg IM Q6H PRN PRN Reason: Nausea Last Admin: 05/23/24 14:51 Dose: 12.5 mg Sodium Chloride (0.9 % Sodium Chloride Flush 3 Ml Syringe) 3 ml IVFSH [facility] Last Admin: 05/24/24 19:16 Dose: 3 ml Home Medications ?Medication ?Instructions ?Recorded ?Confirmed ?Last Taken ?Type loperamide 2 mg capsule 2 mg PO QID PRN Loose Stool 05/21/24 05/21/24 Unknown History Physical Exam 2 Vital Signs: Vital Signs: Last Vital Signs Temp 99.4 F 05/25/24 07:07 Pulse 80 05/25/24 07:07 Resp 16 05/25/24 07:07 BP 125/75 05/25/24 07:07 Pulse Ox 92 05/25/24 07:07 O2 Del Method Room Air 05/25/24 07:07 BMI result Body Mass Index 19.8 EXAM: GENERAL: The patient is thin VITAL SIGNS:see workflow HEENT: Nonicteric sclerae, PERRLA, EOMI. Oropharynx clear. Moist mucous membranes. Conjunctivae appear well perfused. No thyroid mass. CHEST: Chest wall is nontender. HEART: Regular rate and rhythm without murmurs. LUNGS: Clear to auscultation bilaterally. ABDOMEN: Soft, positive bowel sounds, nontender, no organomegaly.no flank tenderness--mildly distended SKIN: No rash, no excessive bruising, petechiae, or purpura. NEUROLOGIC: Cranial nerves II-XII intact without motor/sensory deficit. Psych: normal affect Results Labs 05/25/24 08:09 05/25/24 08:[address] scan - abdomen: Attestation: I personally reviewed and interpreted this imaging study as follows: (dilated loops of small bowel, liver cysts, mild atherosclerosis ) Assessment and Plan (1) H/O total colectomy: Status: Acute (2) Ulcerative colitis: Qualifiers: Ulcerative colitis location: unspecified ulcerative colitis location D igestive disease complication type: unspecified complication Qualified Code(s): K51.919 - Ulcerative colitis, unspecified with unspecified complications Status: Acute (3) Small bowel obstruction: Status: Acute Plan 1/ SBO likely from adhesions from prior surgeries 2/ Chronic diarrhea, had multiple evals per her history, ddx: pancreatic etiology, simmering crohns, food allergy, irritable pouch syndrome, other enteropathy PLAN: 1/ patient going for repeat CT abdo, will await this -if neg can consider rept pouchoscopy assess for any stricture, cuffitis etc and dilate if needed, also discussed using lomotil, codeine, tincture of opium, trial of panc enzymes 2/ in mentime check stool PCR, c diff, elastase, lactoferrin 3/ can cont with TCA meantime Procedures Date of Service Date of Service: 05/25/24
[2024-05-25 08:49] LABS: Hemoglobin 13.4 g/dl (12.0-16.0); Mean Corpuscular HGB Conc 33.5 g/dl (31.0-35.0); Mean Corpuscular Hemoglobin 30.2 pg (27.0-33.0); Mean Corpuscular Volume 90.3 fL (80.0-98.0); Mean Platelet Volume 10.2 fL (9.4-12.3); Platelet Count 336 X10*3/uL (160-400); Red Blood Count 4.43 X10*6/uL (4.20-5.50); Red Cell Distribution Width 12.4 % (11.0-16.0); White Blood Count 5.2 X10*3/uL (4.8-10.8)
[2024-05-25 09:01] LABS: Anion Gap 14 (12-20); Blood Urea Nitrogen 18 mg/dL (9-16); Calcium 9.5 mg/dL (8.4-10.2); Carbon Dioxide 31 mmol/L (22-29); Chloride 101 mmol/L (96-108); Estimated Glomerular Filt Rate > 60; Glucose Random 128 mg/dL (60-115); Sodium 143 mmol/L (135-145)
[2024-05-25 09:23] LABS: Band Neutrophils Percent 26 % (3-5); Eosinophils Absolute Manual 0.2 X10*3/uL (0.0-0.4); Eosinophils Percent Manual 3 % (0-4); Lymphocytes Absolute Manual 1.1 X10*3/uL (1.2-4.9); Lymphocytes Percent Manual 22 % (20-40); Monocytes Absolute Manual 0.7 X10*3/uL (0.1-1.2); Monocytes Percent Manual 14 % (2-11); Neutrophils Absolute Manual 3.2 X10*3/uL (2.0-8.3); Neutrophils Percent Manual 35 % (45-73)
[2024-05-25 09:25] LABS: Platelet Estimate NORMAL (NORMAL); Platelet Morphology Comment NORMAL; RBC Morphology NORMAL
[2024-05-25] MEDS: ondansetron HCL 4 MG/2 ML VIAL IVPUSH ×2 (10:12→20:21)
[2024-05-25 12:56] VITALS: TEMP 37.7
[2024-05-25] MEDS: iohexoL 350 MG/ML 100 ML INFUS..BTL IV (14:51)
[2024-05-25] MEDS: Barium Sulfate Oral (Mocha) 450 ML ORAL.SUSP 900 ML PO (14:52)
[2024-05-25 15:12] VITALS: BP 133/71; PULSE 66; RESP 16; TEMP 37.3; O2SAT 94
[2024-05-25] MEDS: Acetaminophen 1,000 MG/100 ML PIGGYBACK 400 MG IV ×2 (16:59→23:43)
[2024-05-25] MEDS: 0.9 % Sodium Chloride Flush 3 ML SYRINGE IVFLUSH (17:07)
[2024-05-25 17:40] LABS: CDiff Gene PCR NEGATIVE (Negative)
[2024-05-25 20:00] VITALS: BP 137/82; PULSE 65; RESP 18; TEMP 36.9; O2SAT 95
[2024-05-26] MEDS: Dextrose 5 % and Lactated Ring 1,000 ML 80 ML IVCONT ×2 (01:47→14:45)
[2024-05-26 03:34] VITALS: BP 140/70; PULSE 64; RESP 18; TEMP 36.7; O2SAT 95
[2024-05-26] MEDS: Ketorolac Tromethamine 15 MG/ML VIAL IVPUSH ×2 (04:15→21:01)
[2024-05-26] MEDS: LORazepam 2 MG/ML VIAL 0.5 MG IVPUSH ×2 (04:17→21:04)
[2024-05-26] MEDS: Acetaminophen 1,000 MG/100 ML PIGGYBACK 400 MG IV ×2 (05:46→11:06)
[2024-05-26 07:26] VITALS: BP 120/69; PULSE 68; RESP 16; TEMP 37.3; O2SAT 95
--- NOTE | 2024-05-26 08:12 | PM.PNGS ---
Subjective Subjective Date of Service: 05/26/24 Interval history: Patient continues to have loose stool with incontinence. Reports less abdominal pain this morning. Took only a small amount of p.o. last evening. Physical Exam Vital Signs: Vital Signs: Last Vital Signs Temp 99.2 F 05/26/24 07:26 Pulse 68 05/26/24 07:26 Resp 16 05/26/24 07:26 BP 120/69 05/26/24 07:26 Pulse Ox 95 05/26/24 07:26 O2 Del Method Room Air 05/26/24 07:26 BMI result Body Mass Index 19.8 Const: General: ill appearing Nutritional Appearance: thin Orientation/consciousness: patient oriented x3 Resp: Effort & Inspection: normal respiratory effort, no audible wheezes, no cough and no respiratory distress GI: Other: distended, soft, non-tender Skin: Other: warm and dry Neuro: General: patient oriented x3 Objective Data Active Medications Calcium Carbonate (Calcium Carbonate 750 Mg Tab.Chew) 750 mg PO Q4H PRN PRN Reason: Heartburn Hydromorphone HCl (Hydromorphone Hcl 0.5 Mg/0.5 Ml Syringe) 0.5 mg IVPUSH Q3H PRN; Protocol PRN Reason: Pain, Severe (Pain Scale 7-10) Last Admin: 05/23/24 13:20 Dose: 0.5 mg Dextrose/Lactated Ringer's (D5lr) 1,000 mls @ 80 mls/hr IVCONT .[id number] [facility] Last Admin: 05/26/24 01:47 Dose: 80 mls/hr Documented By: DEIDRE Acetaminophen (Ofirmev) 1,000 mg in 100 mls @ 400 mls/hr IV Q6H [facility] Stop: 05/26/24 11:14 Last Infusion: 05/26/24 06:03 Dose: Infused Documented By: DEIDRE Ketorolac Tromethamine (Ketorolac Tromethamine 15 Mg/Ml Vial) 15 mg IVPUSH Q6H PRN PRN Reason: Pain, Mild (Pain Scale 1-3) Last Admin: 05/26/24 04:15 Dose: 15 mg Documented By: DEIDRE Lorazepam (Lorazepam 2 Mg/Ml Vial) 0.5 mg IVPUSH Q6H PRN PRN Reason: Anxiety Last Admin: 05/26/24 04:17 Dose: 0.5 mg Documented By: DEIDRE Magnesium Hydroxide (Milk Of Magnesia 30 Ml Oral.Susp) 30 ml PO DAILY PRN PRN Reason: Constipation Melatonin (Melatonin 3 Mg Tablet) 6 mg PO BEDTIME PRN PRN Reason: Insomnia Ondansetron HCl (Ondansetron Hcl 4 Mg/2 Ml Vial) 4 mg IVPUSH QID PRN PRN Reason: Nausea Last Admin: 05/25/24 20:21 Dose: 4 mg Documented By: DEIDRE Promethazine HCl (Promethazine Hcl 25 Mg/Ml Vial) 12.5 mg IM Q6H PRN PRN Reason: Nausea Last Admin: 05/23/24 14:51 Dose: 12.5 mg Documented By: GIO Sodium Chloride (0.9 % Sodium Chloride Flush 3 Ml Syringe) 3 ml IVFLUSH QSHIFT CLAUDIA Last Admin: 05/26/24 07:37 Dose: Not Given Documented By: LATIA Non-Admin Reason: IV Running Labs 05/25/24 08:09 05/25/24 08:23 Labs: Laboratory Results - last 24 hr 05/25/24 05/25/24 05/25/24 08:09 08:23 15:02 MCV 90.3 MCH 30.2 MCHC 33.5 RDW 12.4 Plt Count 336 MPV 10.2 Immature Gran % (Auto) Cancelled Neut % (Auto) Cancelled Lymph % (Auto) Cancelled [place] % (Auto) Cancelled Eos % (Auto) Cancelled Baso % (Auto) Cancelled Lymph # (Auto) Cancelled [place] # (Auto) Cancelled Eos # (Auto) Cancelled Baso # (Auto) Cancelled Abs Immat Gran (auto) Cancelled Absolute Neuts (auto) Cancelled Absolute Nucleated RBC 0.000 Nucleated RBC % (auto) 0.0 Neutrophils % (Manual) 35 L Band Neutrophils % 26 H Lymphocytes % (Manual) 22 Monocytes % (Manual) 14 H Eosinophils % (Manual) 3 Abs Neuts (Manual) 3.2 Lymphocytes # (Manual) 1.1 L Monocytes # (Manual) 0.7 Eosinophils # (Manual) 0.2 Platelet Estimate NORMAL Plt Morphology Comment NORMAL RBC Morphology NORMAL Anion Gap 14 Estim Creat Clear Calc 54.0 Estimated GFR > 60 Random Glucose 128 H Calcium 9.5 D C. difficile Tox B Gene NEGATIVE Imaging CT scan - abdomen: Radiologist's impression: Impressions Abdomen/Pelvis CT 05/25/24 14:36 IMPRESSION: 1. High-grade small bowel obstruction. 2. Mild ascites. 3. Status post cholecystectomy and hysterectomy and colectomy. 4. Multiple hepatic cysts. 5. Degenerative changes at L5-S1. Fleischner guidelines were followed. Electronically signed by: Evaristo Lujan MD 05/25/2024 05:42 PM EDT RP Procedures Date of Service Date of Service: 05/26/24 Progress Note: A&P Assessment and plan (1) H/O total colectomy: Status: Acute (2) Ulcerative colitis: Status: Acute (3) Small bowel obstruction: Status: Acute Plan 68 year old female patient with history of total colectomy, j-pouch, now with obstructive symptoms but loose, incontinent stools, and continued abdominal pain and bloating. Repeat CT abdomen and pelvis reveals continued dilated loops of small bowel suggestive of bowel obstruction but no clear transition point. C diff titer negative. GI is considering endoscopy. Patient has been essentially NPO since . Discussed TPN/PPN the patient. We will obtain nutrition consult for initiation of PPN for now. Continue clear liquids as tolerated. Time Spent With Patient Time: Total time managing care of this patient today ____ minutes. Quality Stroke Does the patient have a stroke diagnosis?: No VTE Prior VTE?: No VTE Risk Level:: Surgical - moderate VTE Device Contraindication: N/A - Device Ordered VTE Drug Contraindication: N/A - Med Ordered
[2024-05-26 12:48] LABS: Adenovirus F 40/41 Not Detected (Not Detect.); Astrovirus Not Detected (Not Detect.); Campylobacter Not Detected (Not Detect.); Cryptosporidium Not Detected (Not Detect.); Cyclospora cayetanensis Not Detected (Not Detect.); E. coli EAEC Not Detected (Not Detect.); E. coli EPEC Not Detected (Not Detect.); E. coli ETEC Not Detected (Not Detect.); E. coli STEC Not Detected (Not Detect.); Entamoeba histolytica Not Detected (Not Detect.); Giardia lamblia Not Detected (Not Detect.); Norovirus GI/GII Not Detected (Not Detect.); Plesiomonas shigelloides Not Detected (Not Detect.); Rotavirus A Not Detected (Not Detect.); Salmonella Not Detected (Not Detect.); Sapovirus Not Detected (Not Detect.); Shigella sp./EIEC Not Detected (Not Detect.); Vibrio Not Detected (Not Detect.); Vibrio Cholerae Not Detected (Not Detect.); Yersinia enterocolitica Not Detected (Not Detect.)
--- NOTE | 2024-05-26 12:52 | MHC.CM.PN ---
per rounds pt not ready for dcplam remains home no servies
[2024-05-26] MEDS: ondansetron HCL 4 MG/2 ML VIAL IVPUSH ×2 (13:20→21:01)
--- NOTE | 2024-05-26 15:48 | MHC.CLN ---
NUTRITION CONSULT FOR PPN. CONSULT RECEIVED AFTER CUT OFF TIME TO PREP PPN. RD TO ASSESS 05/26.
[2024-05-26 15:49] VITALS: BP 114/71; PULSE 74; RESP 16; TEMP 37.2; O2SAT 95
[2024-05-26 20:00] VITALS: BP 130/72; PULSE 70; RESP 18; TEMP 37.2; O2SAT 94
[2024-05-26] MEDS: Melatonin 3 MG TABLET 6 MG PO (21:00)
[2024-05-27] MEDS: Dextrose 5 % and Lactated Ring 1,000 ML 80 ML IVCONT ×2 (02:27→15:34)
[2024-05-27 04:00] VITALS: BP 126/73; PULSE 72; RESP 18; TEMP 36.8; O2SAT 95
[2024-05-27 07:57] VITALS: BP 113/68; PULSE 66; RESP 16; TEMP 37.3; O2SAT 95
[2024-05-27] MEDS: Potassium Chloride/H20 10 MEQ/100 ML PIGGYBACK 100 MEQ IV (08:36)
--- NOTE | 2024-05-27 08:38 | PM.PNGS ---
Subjective Subjective Date of Service: 05/27/24 Interval history: Patient actually feels somewhat improved this morning with less abdominal pain. She did have a episode of vomiting yesterday afternoon/evening. She needed to get up several times during the night to go to the bathroom. She is awaiting the EGD and pouchoscopy later today. Physical Exam Vital Signs: Vital Signs: Last Vital Signs Temp 99.1 F 05/27/24 07:57 Pulse 66 05/27/24 07:57 Resp 16 05/27/24 07:57 BP 113/68 05/27/24 07:57 Pulse Ox 95 05/27/24 07:57 O2 Del Method Room Air 05/27/24 07:57 BMI result Body Mass Index 19.8 Const: General: no acute distress Nutritional Appearance: thin Orientation/consciousness: patient oriented x3 Resp: Effort & Inspection: normal respiratory effort, no audible wheezes, no cough and no respiratory distress GI: Inspection: Yes normal to inspection Palpation (GI): Soft to palpation, nontender and no guarding Skin: Other: Warm, dry, no rashes Neuro: General: patient oriented x3 Objective Data Active Medications Calcium Carbonate (Calcium Carbonate 750 Mg Tab.Chew) 750 mg PO Q4H PRN PRN Reason: Heartburn Hydromorphone HCl (Hydromorphone Hcl 0.5 Mg/0.5 Ml Syringe) 0.5 mg IVPUSH Q3H PRN; Protocol PRN Reason: Pain, Severe (Pain Scale 7-10) Last Admin: 05/23/24 13:20 Dose: 0.5 mg Dextrose/Lactated Ringer's (D5lr) 1,000 mls @ 80 mls/hr IVCONT .[id number] [facility] Last Admin: 05/27/24 02:27 Dose: 80 mls/hr Documented By: DEIDRE Potassium Chloride (Potassium Chloride/H20) 10 meq in 100 mls @ 100 mls/hr IV Q1H [facility] Stop: 05/27/24 12:29 Last Admin: 05/27/24 08:36 Dose: 100 mls/hr Documented By: MALA Ketorolac Tromethamine (Ketorolac Tromethamine 15 Mg/Ml Vial) 15 mg IVPUSH Q6H PRN PRN Reason: Pain, Mild (Pain Scale 1-3) Last Admin: 05/26/24 21:01 Dose: 15 mg Documented By: DEIDRE Lorazepam (Lorazepam 2 Mg/Ml Vial) 0.5 mg IVPUSH Q6H PRN PRN Reason: Anxiety Last Admin: 05/26/24 21:04 Dose: 0.5 mg Documented By: DEIDRE Magnesium Hydroxide (Milk Of Magnesia 30 Ml Oral.Susp) 30 ml PO DAILY PRN PRN Reason: Constipation Melatonin (Melatonin 3 Mg Tablet) 6 mg PO BEDTIME PRN PRN Reason: Insomnia Last Admin: 05/26/24 21:00 Dose: 6 mg Documented By: DEIDRE Ondansetron HCl (Ondansetron Hcl 4 Mg/2 Ml Vial) 4 mg IVPUSH QID PRN PRN Reason: Nausea Last Admin: 05/26/24 21:01 Dose: 4 mg Documented By: DEIDRE Promethazine HCl (Promethazine Hcl 25 Mg/Ml Vial) 12.5 mg IM Q6H PRN PRN Reason: Nausea Last Admin: 05/23/24 14:51 Dose: 12.5 mg Documented By: GIO Sodium Chloride (0.9 % Sodium Chloride Flush 3 Ml [facility]ringe) [facility] Last Admin: 05/27/24 08:37 Dose: Not Given Documented By: MALA Non-Admin Reason: IV Running Labs 05/25/24 08:09 05/25/24 08:23 Labs: Laboratory Results - last 24 hr 05/25/24 15:02 Stl C. cayetanensis PCR Not Detected Stool Rotavirus A PCR Not Detected Stl Adenov F 40/41 PCR Not Detected Stool Astrovirus (PCR) Not Detected Stool Campylobacter PCR Not Detected Stool Cryptosporidium PCR Not Detected Stl Sh Tox Pr E STEC PCR Not Detected Stool E coli O157 PCR Not applicable Stl Enterotoxigenic E PCR Not Detected Stool EPEC (PCR) Not Detected Stool EAEC (PCR) Not Detected Stl E. histolytica PCR Not Detected Stool Giardia Lamblia PCR Not Detected Stl P. shigelloides PCR Not Detected Stool Salmonella PCR Not Detected Stool Sapovirus (PCR) Not Detected Stl Shigella/EIEC PCR Not Detected St Y.enterocolitica PCR Not Detected Stool Vibrio (PCR) Not Detected Stl Vibrio cholerae PCR Not Detected Stl Norovirus GI/GII PCR Not Detected Procedures Date of Service Date of Service: 05/27/24 Progress Note: A&P Assessment and plan (1) H/O total colectomy: Status: Acute (2) Ulcerative colitis: Status: Acute (3) Small bowel obstruction: Status: Acute Plan Overall the patient is improved today although she has been NPO overnight. Her abdominal pain is improved but she did have some vomiting yesterday. She is awaiting EGD and pouch endoscopy later today. Awaiting nutrition consult and pharmacy recommendations for PPN/TPN. Time Spent With Patient Time: Total time managing care of this patient today ____ minutes. Quality Stroke Does the patient have a stroke diagnosis?: No VTE Prior VTE?: No VTE Risk Level:: Surgical - moderate VTE Device Contraindication: N/A - Device Ordered VTE Drug Contraindication: N/A - Med Ordered
[2024-05-27] MEDS: Potassium Chloride Packet 20 MEQ PACKET 40 MEQ PO (09:11)
--- NOTE | 2024-05-27 09:18 | MHC.CLN ---
NUTRITION CONSULT FOR PPN. PATIENT WITH LIMITED PO INTAKE SINCE 05/20. AT RISK FOR REFEEDING. NPO TODAY FOR PROCEDURE. COMMUNICATED WITH PHARMACY. PPN DAY 1, 05/27/24: RECOMMEND START PPN AT 40 ML PER HOUR TO PROVIDE 41 G PROTEIN, 96 G DEXTROSE, 490 KCAL. REPLETE LYTES NEEDED. CHECK TRIGLYCERIDES. PPN DAY 2, 05/28/24: RECOMMEND ADVANCE TO MAX GOAL RATE PPN AT 60 ML PER HOUR ADD 55 G LIPIDS TO PROVIDE 61 G PROTEIN (1.2 G/KG); 144 G DEXTROSE; 1284 TOTAL KCALS (25.3 KCAL/KG). REPLETE LYTES NEEDED. MONITOR LABS, PPN TOLERANCE, DIET ADVANCEMENT. SEE CLINICAL NUTRITION ASSESSMENT 05/27/24.
[2024-05-27 09:28] VITALS: BMI 19.8
[2024-05-27 09:54] LABS: Alanine Aminotransferase 20 U/L (0-31); Albumin Level 3.6 g/dL (3.5-5.0); Alkaline Phosphatase 71 U/L (39-117); Anion Gap 10 (12-20); Aspartate Amino Transferase 20 U/L (5-31); Bilirubin Total 0.4 mg/dL (0.0-1.0); Blood Urea Nitrogen 16 mg/dL (9-16); Calcium 9.2 mg/dL (8.4-10.2); Carbon Dioxide 35 mmol/L (22-29); Chloride 98 mmol/L (96-108); Creatinine Clr Calc Pharmacy 58.3; Estimated Glomerular Filt Rate > 60; Glucose Fasting 116 mg/dL (60-99); Magnesium 1.7 mg/dL (1.6-2.6); Potassium 2.7 mmol/L (3.3-5.1); Sodium 140 mmol/L (135-145); Total Protein 6.2 g/dL (6.5-8.0)
[2024-05-27 11:00] LABS: Triglycerides 91 mg/dL (<150)
[2024-05-27 13:05] LABS: Anion Gap 12 (12-20); Blood Urea Nitrogen 15 mg/dL (9-16); Calcium 9.4 mg/dL (8.4-10.2); Carbon Dioxide 31 mmol/L (22-29); Chloride 101 mmol/L (96-108); Creatinine Clr Calc Pharmacy 61.6; Estimated Glomerular Filt Rate > 60; Glucose Random 114 mg/dL (60-115); Sodium 141 mmol/L (135-145)
[2024-05-27] MEDS: metroNIDAZOLE 500 MG TABLET PO ×2 (14:14→21:45)
[2024-05-27] MEDS: Potassium Chloride ER 20 MEQ TAB.ER.PRT PO ×2 (14:14→20:38)
[2024-05-27 15:38] VITALS: BP 121/76; PULSE 75; RESP 20; TEMP 37.7; O2SAT 98
--- NOTE | 2024-05-27 18:14 | P.PNGI_ITS ---
Subjective Subjective Date of Service: 05/27/24 Interval History: feels improved, less distended, maybe some reduction in diarrhea was due to have egd and pouchoscopy but cancelled due to low K Critical Care Time (minutes): 0 Physical Exam 2 Vital Signs: Vital Signs: Last Vital Signs Temp 99.8 F 05/27/24 15:38 Pulse 75 05/27/24 15:38 Resp 20 05/27/24 15:38 BP 121/76 05/27/24 15:38 Pulse Ox 98 05/27/24 15:38 O2 Del Method Room Air 05/27/24 15:38 BMI result Body Mass Index 19.8 EXAM: GENERAL: The patient is thin VITAL SIGNS:see workflow HEENT: Nonicteric sclerae, PERRLA, EOMI. Oropharynx clear. Moist mucous membranes. Conjunctivae appear well perfused. No thyroid mass. CHEST: Chest wall is nontender. HEART: Regular rate and rhythm without murmurs. LUNGS: Clear to auscultation bilaterally. ABDOMEN: Soft, positive bowel sounds, nontender, no organomegaly.no flank tenderness SKIN: No rash, no excessive bruising, petechiae, or purpura. NEUROLOGIC: Cranial nerves II-XII intact without motor/sensory deficit. Psych: normal affect Objective Data Labs 05/25/24 08:09 05/27/24 12:30 Labs: Laboratory Results - last 24 hr 05/27/24 05/27/24 05/27/24 09:16 09:16 09:16 Sodium Cancelled 140 Potassium Cancelled 2.7 L* Chloride Cancelled Carbon Dioxide Anion Gap BUN Creatinine Estim Creat Clear Calc Estimated GFR Random Glucose Fasting Glucose Calcium Magnesium Total Bilirubin AST ALT Alkaline Phosphatase Total Protein Albumin Triglycerides 05/27/24 05/27/24 05/27/24 09:16 09:16 09:16 Sodium Potassium Chloride 98 Carbon Dioxide Cancelled 35 H Anion Gap Cancelled 10 L BUN Cancelled Creatinine Estim Creat Clear Calc Estimated GFR Random Glucose Fasting Glucose Calcium Magnesium Total Bilirubin AST ALT Alkaline Phosphatase Total Protein Albumin Triglycerides 05/27/24 05/27/24 05/27/24 09:16 09:16 09:16 Sodium Potassium Chloride Carbon Dioxide Anion Gap BUN 16 Creatinine Cancelled 0.74 Estim Creat Clear Calc Cancelled 58.3 Estimated GFR Cancelled Random Glucose Fasting Glucose Calcium Magnesium Total Bilirubin AST ALT Alkaline Phosphatase Total Protein Albumin Triglycerides 05/27/24 05/27/24 05/27/24 09:16 09:16 09:16 Sodium Potassium Chloride Carbon Dioxide Anion Gap BUN Creatinine Estim Creat Clear Calc Estimated GFR > 60 Random Glucose Cancelled Fasting Glucose 116 H Calcium Cancelled 9.2 Magnesium 1.7 Total Bilirubin Cancelled 0.4 AST Cancelled ALT Alkaline Phosphatase Total Protein Albumin Triglycerides 05/27/24 05/27/24 05/27/24 09:16 09:16 09:16 Sodium Potassium Chloride Carbon Dioxide Anion Gap BUN Creatinine Estim Creat Clear Calc Estimated GFR Random Glucose Fasting Glucose Calcium Magnesium Total Bilirubin AST 20 ALT Cancelled 20 Alkaline Phosphatase Cancelled 71 Total Protein Cancelled Albumin Triglycerides 05/27/24 05/27/24 05/27/24 09:16 09:16 12:30 Sodium 141 Potassium 3.0 L Chloride 101 Carbon Dioxide 31 H Anion Gap 12 BUN 15 Creatinine 0.70 Estim Creat Clear Calc 61.6 Estimated GFR > 60 Random Glucose 114 Fasting Glucose Calcium 9.4 Magnesium Total Bilirubin AST ALT Alkaline Phosphatase Total Protein 6.2 L Albumin Cancelled 3.[address] scan - abdomen: Attestation: I personally reviewed and interpreted this imaging study as follows: (dilated small bowel loops just above pouch, liver cysts, ?some rectal stranding) Procedures Date of Service Date of Service: 05/27/24 Progress Note: A&P Assessment and plan (1) Small bowel obstruction: Status: Acute Plan 1/ Small bowel obstruction, seems to be clinically improving, ?due to adhesions, pouch stricture, cuffitis c diff and GI PCR neg PLAN: 1/ POuchoscopy possible ballon dilation, bx, will add EGD also due to chronic diarrhea issues 2/ replenish K, add MAG as well Time Spent With Patient Time: Total time managing care of this patient today ____ minutes. Quality Stroke Does the patient have a stroke diagnosis?: No VTE Prior VTE?: No VTE Risk Level:: Surgical - moderate VTE Device Contraindication: N/A - Device Ordered VTE Drug Contraindication: N/A - Med Ordered
[2024-05-27 19:25] VITALS: BP 132/72; PULSE 65; RESP 20; TEMP 37.3; O2SAT 95
[2024-05-27] MEDS: LORazepam 2 MG/ML VIAL 0.5 MG IVPUSH (20:38)
[2024-05-27] MEDS: Parenteral Nutrition 960 ML 40 ML IV (20:42)
[2024-05-27] MEDS: Acetaminophen 325 MG TABLET 650 MG PO (20:54)
[2024-05-27] MEDS: Melatonin 3 MG TABLET 6 MG PO (20:55)
[2024-05-28 03:08] VITALS: BP 130/72; PULSE 61; RESP 16; TEMP 36.4; O2SAT 94
[2024-05-28] MEDS: metroNIDAZOLE 500 MG TABLET PO (05:50)
[2024-05-28 06:05] LABS: Anion Gap 12 (12-20); Blood Urea Nitrogen 10 mg/dL (9-16); Calcium 9.5 mg/dL (8.4-10.2); Carbon Dioxide 27 mmol/L (22-29); Chloride 106 mmol/L (96-108); Creatinine Clr Calc Pharmacy 62.6; Estimated Glomerular Filt Rate > 60; Glucose Random 110 mg/dL (60-115); Potassium 3.9 mmol/L (3.3-5.1); Sodium 141 mmol/L (135-145)
[2024-05-28 07:48] VITALS: BP 119/55; PULSE 61; RESP 16; TEMP 36.8; O2SAT 97
[2024-05-28 08:11] LABS: Albumin Level 3.4 g/dL (3.5-5.0); Magnesium 1.8 mg/dL (1.6-2.6); Phosphorus 3.2 mg/dL (2.7-4.5)
[2024-05-28] MEDS: Potassium Chloride ER 20 MEQ TAB.ER.PRT PO (08:36)
--- NOTE | 2024-05-28 09:59 | MHC.CLN ---
F/U DIET ADVANCED TODAY TO REGULAR, LOW FIBER. REVIEWED LABS. COMMUNICATED WITH PHARMACY AND MD. CONTINUE WITH PPN UNTIL TAKING ADEQUATE PO. PPN DAY 2, 05/28/24: RECOMMEND ADVANCE TO MAX GOAL RATE PPN AT 60 ML PER HOUR ADD 55 G LIPIDS TO PROVIDE 61 G PROTEIN (1.2 G/KG); 144 G DEXTROSE; 1284 TOTAL KCALS (25.3 KCAL/KG). REPLETE LYTES NEEDED. MONITOR LABS, PPN TOLERANCE, PO INTAKE.
--- NOTE | 2024-05-28 10:39 | P.PNGS_ITS ---
Subjective Subjective Date of Service: 05/28/24 Interval history: Patient continues to feel improved today with no further nausea or vomiting. Her bowels are more close to normal. She would like to try solid (soft) food this morning. Physical Exam 2 Vital Signs: Vital Signs: Last Vital Signs Temp 98.3 F 05/28/24 07:48 Pulse 61 05/28/24 07:48 Resp 16 05/28/24 07:48 BP 119/55 L 05/28/24 07:48 Pulse Ox 97 05/28/24 07:48 O2 Del Method Room Air 05/28/24 07:48 BMI result Body Mass Index 19.8 Const: General: no acute distress Nutritional Appearance: thin O rientation/consciousness: patient oriented x3 Resp: Effort & Inspection: normal respiratory effort, no audible wheezes, no cough and no respiratory distress GI: Inspection: Yes normal to inspection Palpation (GI): Soft to palpation, nontender and no guarding Skin: Other: Warm, dry, no rashes Neuro: General: patient oriented x3 Objective Data Active Medications Acetaminophen (Acetaminophen 325 Mg Tablet) 650 mg PO QID PRN PRN Reason: headache, temp > 101 Last Admin: 05/27/24 20:54 Dose: 650 mg Documented By: DEIDRE Calcium Carbonate (Calcium Carbonate 750 Mg Tab.Chew) 750 mg PO Q4H PRN PRN Reason: Heartburn Hydromorphone HCl (Hydromorphone Hcl 0.5 Mg/0.5 Ml Syringe) 0.5 mg IVPUSH Q3H PRN; Protocol PRN Reason: Pain, Severe (Pain Scale 7-10) Last Admin: 05/23/24 13:20 Dose: 0.5 mg Nutrition (Parenteral) (Parenteral Nutrition) 960 mls @ 40 mls/hr IV .Q24H CLAUDIA; Protocol Stop: 05/28/24 20:59 Last Admin: 05/27/24 20:42 Dose: 40 mls/hr Documented By: DEIDRE Nutrition (Parenteral) (Parenteral Nutrition) 1,440 mls @ 60 mls/hr IV .Q24H CLAUDIA; Protocol Stop: 05/29/24 20:59 Ketorolac Tromethamine (Ketorolac Tromethamine 15 Mg/Ml Vial) 15 mg IVPUSH Q6H PRN PRN Reason: Pain, Mild (Pain Scale 1-3) Last Admin: 05/26/24 21:01 Dose: 15 mg Documented By: DEIDRE Lorazepam (Lorazepam 2 Mg/Ml Vial) 0.5 mg IVPUSH Q6H PRN PRN Reason: Anxiety Last Admin: 05/27/24 20:38 Dose: 0.5 mg Documented By: DEIDRE Magnesium Hydroxide (Milk Of Magnesia 30 Ml Oral.Susp) 30 ml PO DAILY PRN PRN Reason: Constipation Melatonin (Melatonin 3 Mg Tablet) 6 mg PO BEDTIME PRN PRN Reason: Insomnia Last Admin: 05/27/24 20:55 Dose: 6 mg Documented By: DEIDRE Ondansetron HCl (Ondansetron Hcl 4 Mg/2 Ml Vial) 4 mg IVPUSH QID PRN PRN Reason: Nausea Last Admin: 05/26/24 21:01 Dose: 4 mg Documented By: DEIDRE Pharmacy Consult (Consult Rx Parenteral Nutrition Ordering) 1 each MISCELLANE DAILY PRN PRN Reason: Consult order Promethazine HCl (Promethazine Hcl 25 Mg/Ml Vial) 12.5 mg IM Q6H PRN PRN Reason: Nausea Last Admin: 05/23/24 14:51 Dose: 12.5 mg Documented By: GIO Sodium Chloride (0.9 % Sodium Chloride Flush 3 Ml Syringe) 3 ml IVFLUSH [facility] Last Admin: 05/28/24 08:32 Dose: Not Given Documented By: DEIDRE Non-Admin Reason: IV Running Labs 05/25/24 08:09 05/28/24 05:16 Labs: Laboratory Results - last 24 hr 05/27/24 05/27/24 05/28/24 09:16 12:30 05:16 Anion Gap 12 12 Estim Creat Clear Calc 61.6 62.6 Estimated GFR > 60 > 60 Random Glucose 114 110 Calcium 9.4 9.5 Phosphorus 3.2 Magnesium 1.8 Albumin 3.4 L Triglycerides 91 Procedures Date of Service Date of Service: 05/28/24 Progress Note: A&P Assessment and plan (1) H/O total colectomy: Status: Acute (2) Ulcerative colitis: Status: Acute (3) Small bowel obstruction: Status: Acute Plan The patient continues to show improvement and has tolerated the clear liquid diet without worsening of her symptoms. The EGD and pouchoscopy has been canceled due to her improving symptoms. The hypokalemia has improved as well. We will continue PPN for another 24 hours. I will advance her diet to a low- fiber regular diet. If this is well-tolerated, we will DC PPN in preparation for discharge to home. Patient expressed understanding and agrees with the plan. Time Spent With Patient Time: Total time managing care of this patient today ____ minutes. Quality Stroke Does the patient have a stroke diagnosis?: No VTE Prior VTE?: No VTE Risk Level:: Surgical - moderate VTE Device Contraindication: N/A - Device Ordered VTE Drug Contraindication: N/A - Med Ordered
[2024-05-28 16:00] VITALS: BP 130/60; PULSE 67; RESP 14; TEMP 37.2; O2SAT 97
[2024-05-28 19:57] VITALS: BP 129/63; PULSE 66; RESP 16; TEMP 36.8; O2SAT 96
[2024-05-28] MEDS: Parenteral Nutrition 1,440 ML 60 ML IV (21:01)
[2024-05-28 21:10] VITALS: TEMP 37.2
[2024-05-28] MEDS: LORazepam 2 MG/ML VIAL 0.5 MG IVPUSH (23:29)
[2024-05-29 03:31] VITALS: BP 139/78; PULSE 64; RESP 16; TEMP 36.7; O2SAT 96
[2024-05-29 06:43] LABS: Albumin Level 3.6 g/dL (3.5-5.0); Anion Gap 11 (12-20); Blood Urea Nitrogen 11 mg/dL (9-16); Calcium 9.1 mg/dL (8.4-10.2); Carbon Dioxide 25 mmol/L (22-29); Chloride 105 mmol/L (96-108); Creatinine Clr Calc Pharmacy 68.5; Estimated Glomerular Filt Rate > 60; Glucose Random 126 mg/dL (60-115); Magnesium 2.2 mg/dL (1.6-2.6); Phosphorus 3.4 mg/dL (2.7-4.5); Potassium 3.9 mmol/L (3.3-5.1); Sodium 137 mmol/L (135-145)
[2024-05-29 07:48] VITALS: BP 123/68; PULSE 72; RESP 16; TEMP 36.7; O2SAT 97
--- NOTE | 2024-05-29 10:15 | MHC.CM.PN ---
PT WILL DC HOME TODAY WITH NO SERVICES VIA PRIVATE TRANSPORT
--- NOTE | 2024-05-29 10:56 | PM.DS ---
DS: Providers Provider Date of Service: 05/29/24 Date of admission: 05/21/24 18:14 Date of discharge: 05/29/24 Primary care physician: Tran Barrett MD Consults: 05/25/24 08:09 Consult to Gastroenterology Routine Consulting Provider: Stevan Arellano Reason for consultation: Ulcerative colitis, J-pouch, sbo Discharging clinician: Geneva Giraldo DS: Diagnosis Discharge Diagnosis (1) H/O total colectomy: Status: Acute (2) Ulcerative colitis: Status: Acute (3) Small bowel obstruction: Start date: 05/19/24 Status: Acute DS: Summary Hospital Course Hospital Course: the pt is a 68 year old female with hx of total colectomy with jpouch who came in with SBO. This has happened in the past and has resolved with bowel rest. Conservative care and PPN support she has done well passing gas and stool and tolerating po diet. Will be dc home with normal labs and plan to follow up with her GI team at [facility]. She understands and agrees with the plan. We discussed slow advancement of diet, increase prtein intake and carbs for energy boost. trial of aleena protein supplement. Status at Discharge Cognitive/behavioral status at discharge: normal Functional status at discharge: independent ambulation Time Attestation Total time managing care of this patient today: 30 mintues. Discharge Coordination Time (in mins): 30 Quality: Safe Use of Opioids Does Pt have an Active Cancer Diagnosis on the Problem List?: No Quality: Stroke Does the patient have a stroke diagnosis?: No Physical Exam Vital Signs: Vital Signs: Last Vital Signs Temp 98.0 F 05/29/24 07:48 Pulse 72 05/29/24 07:48 Resp 16 05/29/24 07:48 BP 123/68 05/29/24 07:48 Pulse Ox 97 05/29/24 07:48 O2 Del Method Room Air 05/29/24 07:48 BMI result Body Mass Index 19.8 GI: Other: abdomen soft and active bowel sounds DS: Data Data Completed and Pending Labs on day of discharge: Laboratory Results - last 24 hr 05/29/24 05:18 Hold Purple Top SEE NOTE Sodium 137 Potassium 3.9 Chloride 105 Carbon Dioxide 25 Anion Gap 11 L BUN 11 Creatinine 0.63 Estim Creat Clear Calc 68.5 Estimated GFR > 60 Random Glucose 126 H Calcium 9.1 Phosphorus 3.4 Magnesium 2.[address] scan - abdomen: Radiologist's impression: ITS Impressions Abdomen/Pelvis CT 05/21/24 16:03 IMPRESSION: 1. Status post total colectomy with small amount of stool in the rectum. 2. Fluid-filled distended small bowel, correlate clinically. 3. Trace of ascites. 4. Multiple hepatic cysts. 5. Degenerative changes at the level of L5-S1 with grade 1 anterolisthesis. Fleischner guidelines were followed. Electronically signed by: Evaristo Lujan MD 05/21/2024 06:53 PM EDT RP Chest X-Ray 05/21/24 20:00 IMPRESSION: 1. Gastric tube passing below the diaphragm into the stomach properly positioned. 2. No radiographic evidence of acute cardiopulmonary disease. Electronically signed by: Kenny Troy MD 05/22/2024 07:06 AM EDT RP Abdomen/Pelvis CT 05/25/24 14:36 IMPRESSION: 1. High-grade small bowel obstruction. 2. Mild ascites. 3. Status post cholecystectomy and hysterectomy and colectomy. 4. Multiple hepatic cysts. 5. Degenerative changes at L5-S1. Fleischner guidelines were followed. Electronically signed by: Evaristo Lujan MD 05/25/2024 05:42 PM EDT RP Discharge Plan Discharge Anticipated Discharge Date/Time: 05/28/24 13:50 Patient Disposition: Home, Self-Care Discharge Diagnosis: Small-bowel obstruction, pouchitis Referrals: Tran Barrett MD [Primary Care Provider] - 1 Week Discharge Medications: Continued loperamide 2 mg capsule 2 mg PO QID PRN (Reason: Loose Stool) Discharge Orders: Discharge Order (Routine); Ordered 05/29/24 Ordered By: Geneva Giraldo Diet: Advance to usual diet Activity on Discharge: No Restrictions Stand Alone Forms: Patient Portal Discharge page Print Language: [place] Care Plan Goals: Returned to normal diet and activity Health Concerns: abdominal pain and obstructive symptoms Plan of Treatment: slow advancement of diet and ambulation pt to follow up with her [facility] GI team Assessment: Pt improved tolerating po diet, passing gas and stool and less abdominal pain
--- NOTE | 2024-06-01 07:27 | P.CDIM_ITS ---
PROVIDER RESPONSE TEXT: To clarify, the appropriate diagnosis supported by the clinical indicators: Partial SBO QUERY TEXT: PHYSICIAN'S DOCUMENTATION REQUEST Date of Query: 05/28/2024 08:22 AM EDT Patient Name: ELEAZAR LONDON Admit Date: 05/21/2024 Dear Vitaly Morin MD, A review of the medical record indicates additional documentation may be needed. Please review below and update the documentation accordingly. Clinical Indicators: Per General Surgery Progress Note 05/26/24: history of total colectomy, j-pouch, now with obstructive symptoms but loose, incontinent stools, and continued abdominal pain and bloating. Repeat CT abdomen and pelvis reveals continued dilated loops of small bowel suggestive of bowel obstr uction but no clear transition point. Based on the above, could you clarify the appropriate diagnosis, if significant, that supports the ab ove abnormalities and additional evaluation, monitoring, and/or treatment rendered: Partial SBO Complete SBO Other (explain) Clinically unable to determine (explain) Thank you, Zenia Dias RN Use of terms such as suspected, likely, concern for, or probable (associated with a specific diagnosi s that is being evaluated, monitored, or treated as if it exists) are acceptable and can be coded in the inpatient se tting, when documented at the time of discharge. Please use your independent medical judgment in providing your response. THIS QUERY IS PART OF THE PERMANENT MEDICAL RECORD
[2024-06-02 18:43] LABS: Pancreatic Elastase-1 17 mcg/g
[2024-06-04 10:41] LABS: Lactoferrin, Fecal, Quant. 16.01
== END 2024-05-29 11:11 | disposition home or self-care (01) | DRG 389 ==
LOC: HO.ED 17:47 → HO.EDOVER 18:37 → HO.S3 20:12
PROVIDERS: Internal Medicine Gastroenterology; Nurse Practitioner Family; Admitting Provider Surgery; Emergency Provider Emergency Medicine; PCP Internal Medicine; Visit Provider Surgery
DX: K91.31 Postprocedural partial intestinal obstruction (principal); K51.90 Ulcerative colitis, unspecified, without complications; K91.850 Pouchitis; Y83.8 Other surgical procedures as the cause of abnormal reaction of the patient, or of later complication, without mention of misadventure at the time of the procedure; E87.6 Hypokalemia; Z20.822 Contact with and (suspected) exposure to COVID-19; Z90.5 Acquired absence of kidney; Z85.41 Personal history of malignant neoplasm of cervix uteri; Z79.899 Other long term (current) drug therapy
CPT/HCPCS: 0241U; 36415; 71045; 74177; 80048; 80053; 81003; 82040; 82656; 83605; 83631; 83690; 83735; 84100; 84478; 85007; 85025; 85027; 87493; 87507; 99285; J0131; J1171; J1200; J1650; J1885; J2060; J2405; J2550; J2765; J3480; Q9967

== ENCOUNTER → 2024-05-21 18:14 | Outpatient (BNV) | payer MEDICARE, SELFPAY | PROVIDERS: Admitting Provider Surgery; Emergency Provider Emergency Medicine; PCP Internal Medicine; Visit Provider Surgery | DX: Z90.49 Acquired absence of other specified parts of digestive tract (principal); K51.919 Ulcerative colitis, unspecified with unspecified complications; K56.609 Unspecified intestinal obstruction, unspecified as to partial versus complete obstruction | CPT/HCPCS: 99222; 99232; 99238 ==

== ENCOUNTER → 2024-05-21 18:14 | Outpatient (BNV) | payer MEDICARE, SELFPAY | PROVIDERS: Admitting Provider Surgery; Emergency Provider Emergency Medicine; PCP Internal Medicine; Visit Provider Internal Medicine Gastroenterology | DX: K56.609 Unspecified intestinal obstruction, unspecified as to partial versus complete obstruction (principal) | CPT/HCPCS: 99223; 99233 ==